=== PATIENT | female | born 1995 | race Caucasian/White ===

== ENCOUNTER 2018-02-11 19:30 | Emergency (ER) | payer OTHER, SELFPAY ==
[2018-02-11 19:31] VITALS: BP 139/106; PULSE 105; RESP 16; TEMP 36.6; O2SAT 98; BMI 34.6
--- NOTE | 2018-02-11 19:33 | RAD_ITS ---
STUDY: X-RAY - RIGHT FOOT CLINICAL: Female, 22 years old. Pain TECHNIQUE: 3 view(s) of the foot. COMPARISON: None. FINDINGS: There is no evidence of fracture or dislocation. There are no significant degenerative changes. There are no radiodense foreign bodies. RAD/Foot min 3 Views IMPRESSION: No fracture or dislocation. Electronically Signed: Casey Baker, at 19:51 EDT Tel , Service support ,
--- NOTE | 2018-02-11 19:38 | RAD_ITS ---
STUDY: X-RAY - RIGHT ANKLE REASON FOR EXAM: Female, 22 years old. Pain TECHNIQUE: 3 view(s) of the ankle. COMPARISON: None. FINDINGS: There is no evidence of fracture or dislocation. There are no significant degenerative changes. There are no radiodense foreign bodies. RAD/Ankle min 3 Views IMPRESSION: No fracture or dislocation. Electronically Signed: Casey Baker, at 19:49 EDT Tel , Service support ,
--- NOTE | 2018-02-11 20:16 | ED.DCSUM_ITS ---
- ER Visit Summary Date of Service: 02/11/18 Chief Complaint: Right ankle pain History of Present Illness: The patient is a 22 F presenting for evaluation secondary to a right ankle injury area patient reports that she suffered a mechanical fall where she had a plantar inversion injury of her right ankle. Patient states that she is able to bear weight but with some pain. She denies hitting her head or loss of consciousness. She denies any other injuries at this time. Patient believes that she sprained her ankle. Physical Examination: Physical exam unremarkable except for examination of lower extremity. Right lower extremity exam shows no proximal fibular head tenderness. There is no evidence of tenderness to palpation over the midfoot or the fifth metatarsal. There is lateral malleolar tenderness to palpation and swelling. No evidence of laxity with drawer test. DP and PT pulses are 2+ and bilaterally symmetric normal sensation distally normal capillary refill. Test Results: 3 view of the foot and ankle per radiology found to be negative Emergency Department Course and Treatment: Patient presented for evaluation secondary to an ankle injury. X-rays were found to be negative, patient will be provided with an Gonzalo wrap. She was instructed on rehab exercises and follow- up with primary care as needed. Disposition: Discharge Impression: 1. Right ankle sprain This note was generated with [employer] dictation software. It may contain incorrect words, spelling, and punctuation that were not noted in review of the chart prior to signing ED Disposition - Plan for ED Patient: Disposition: Home or Assisted Living Chief Complaint: Lower Extremity Injury Diagnosis: Ankle sprain Instructions: ED Sprain Ankle No X Ray Referrals: Joanne Leal NP-C [Primary Care Provider] - As Needed
== END 2018-02-11 20:49 | disposition home or self-care (01) ==
PROVIDERS: Emergency Provider Emergency Medicine; PCP Nurse Practitioner
DX: S93.401A Sprain of unspecified ligament of right ankle, initial encounter (principal); X50.1XXA Overexertion from prolonged static or awkward postures, initial encounter; Y93.89 Activity, other specified; Y92.89 Other specified places as the place of occurrence of the external cause; Y99.8 Other external cause status
CPT/HCPCS: 73610; 73630; 99282

== ENCOUNTER → 2020-03-11 16:41 | Outpatient (CLI) | payer OTHER, SELFPAY ==
[2020-03-11 13:40] VITALS: BMI 34.6
[2020-03-11 18:39] LABS: Chlamydia Trachomatis by PCR Negative (Negative); Neisserai gonorrhoeae by PCR Negative (Negative); Probe Check PASS; Sample Adequacy Control PASS; Specimen Processing Control PASS
[2020-03-16 13:52] LABS: HPV Reflexed? NOT INDICATED
== END ==
PROVIDERS: PCP Nurse Practitioner; Referring Provider Nurse Practitioner Women's Health; Visit Provider Nurse Practitioner Women's Health
DX: Z12.4 Encounter for screening for malignant neoplasm of cervix (principal); Z11.3 Encounter for screening for infections with a predominantly sexual mode of transmission
CPT/HCPCS: 87491; 87591; 88175; G0145

== ENCOUNTER → 2020-03-26 | Outpatient (CLI) | payer OTHER, SELFPAY ==
[2020-03-11 13:40] VITALS: BMI 34.6
[2020-03-26 10:22] LABS: Hemoglobin A1c 5.3 % (3.8-5.6)
[2020-03-26 10:44] LABS: Cholesterol 195 mg/dL (200); Estradiol 76.4 pg/mL; Glucose 102 mg/dL (74-106); High Density Lipoprotein 52 mg/dL; Prolactin 18.5 ng/mL; Thyroid Stim Hormone (TSH) 2.72 uIU/mL (0.358-3.74); Triglycerides 83 mg/dL; Very Low Density Lipoprotein 17 mg/dL (5-40)
== END | disposition home or self-care (01) ==
LOC: PAVLAB 09:31
PROVIDERS: PCP Nurse Practitioner; Referring Provider Nurse Practitioner Women's Health; Visit Provider Nurse Practitioner Women's Health
DX: E66.9 Obesity, unspecified (principal)
CPT/HCPCS: 36415; 80061; 82670; 82947; 83036; 84146; 84443

== ENCOUNTER → 2020-05-04 | Outpatient (CLI) | payer OTHER, SELFPAY ==
[2020-03-11 13:40] VITALS: BMI 34.6
[2020-05-04 10:48] LABS: Progesterone Level 0.78 ng/mL (See Comment)
== END | disposition home or self-care (01) ==
LOC: PAVLAB 10:15
PROVIDERS: PCP Nurse Practitioner; Referring Provider Nurse Practitioner Women's Health; Visit Provider Nurse Practitioner Women's Health
DX: N97.0 Female infertility associated with anovulation (principal)
CPT/HCPCS: 36415; 84144

== ENCOUNTER → 2020-05-25 | Outpatient (CLI) | payer OTHER, SELFPAY ==
[2020-03-11 13:40] VITALS: BMI 34.6
[2020-05-25 10:58] LABS: Progesterone Level 6.53 ng/mL (See Comment)
== END | disposition home or self-care (01) ==
LOC: PAVLAB 09:37
PROVIDERS: PCP Nurse Practitioner; Referring Provider Nurse Practitioner Women's Health; Visit Provider Nurse Practitioner Women's Health
DX: N97.9 Female infertility, unspecified (principal)
CPT/HCPCS: 36415; 84144

== ENCOUNTER → 2020-06-24 08:42 | Outpatient (CLI) | payer OTHER, SELFPAY ==
[2020-03-11 13:40] VITALS: BMI 34.6
[2020-06-24 09:21] LABS: Progesterone Level 12.85 ng/mL (See Comment)
== END ==
PROVIDERS: PCP Nurse Practitioner; Referring Provider Nurse Practitioner Women's Health; Visit Provider Nurse Practitioner Women's Health
DX: N97.9 Female infertility, unspecified (principal)
CPT/HCPCS: 36415; 84144

== ENCOUNTER → 2020-09-18 09:21 | Outpatient (CLI) | payer OTHER, SELFPAY ==
[2020-03-11 13:40] VITALS: BMI 34.6
[2020-09-18 10:15] LABS: Progesterone Level 15.51 ng/mL (See Comment)
== END ==
PROVIDERS: PCP Nurse Practitioner; Referring Provider Nurse Practitioner Women's Health; Visit Provider Nurse Practitioner Women's Health
DX: Z31.9 Encounter for procreative management, unspecified (principal)
CPT/HCPCS: 36415; 84144

== ENCOUNTER → 2020-09-28 09:33 | Outpatient (CLI) | payer OTHER, SELFPAY ==
[2020-03-11 13:40] VITALS: BMI 34.6
[2020-09-28 10:18] LABS: hCG Titer Quant., Serum 8 mIU/mL (1-3)
== END ==
PROVIDERS: PCP Nurse Practitioner; Referring Provider Obstetrics & Gynecology; Visit Provider Obstetrics & Gynecology
DX: N91.2 Amenorrhea, unspecified (principal)
CPT/HCPCS: 36415; 84702

== ENCOUNTER → 2020-09-30 08:22 | Outpatient (CLI) | payer OTHER, SELFPAY ==
[2020-03-11 13:40] VITALS: BMI 34.6
[2020-09-30 09:05] LABS: hCG Titer Quant., Serum 3 mIU/mL (1-3)
== END ==
PROVIDERS: PCP Nurse Practitioner; Referring Provider Obstetrics & Gynecology; Visit Provider Obstetrics & Gynecology
DX: N91.2 Amenorrhea, unspecified (principal)
CPT/HCPCS: 36415; 84702

== ENCOUNTER → 2021-04-20 09:28 | Outpatient (CLI) | payer OTHER, SELFPAY ==
[2021-04-20 10:06] LABS: Progesterone Level 4.42 ng/mL (See Comment)
== END ==
PROVIDERS: PCP Nurse Practitioner; Referring Provider Nurse Practitioner Women's Health; Visit Provider Nurse Practitioner Women's Health
DX: N97.0 Female infertility associated with anovulation (principal)
CPT/HCPCS: 36415; 84144

== ENCOUNTER → 2021-06-02 | Outpatient (CLI) | payer OTHER, SELFPAY ==
[2021-06-07 22:06] LABS: Chlamydia By Nucleic Acid AMP Negative (Negative)
[2021-06-08 12:05] LABS: Gonococcus By Nucleic Acid AMP Negative (Negative)
== END | disposition home or self-care (01) ==
LOC: LABSPEC 15:29
PROVIDERS: PCP Nurse Practitioner; Visit Provider Obstetrics & Gynecology
DX: Z34.90 Encounter for supervision of normal pregnancy, unspecified, unspecified trimester (principal)
CPT/HCPCS: 87491; 87591

== ENCOUNTER → 2021-07-05 09:22 | Outpatient (CLI) | payer OTHER, SELFPAY ==
[2021-07-05 09:59] LABS: Absolute Lymphocyte Count 2.01 X10^3/uL (0.83-4.51); Absolute Neutrophil Count 4.2 X10^3/uL (2.0-7.7); Basophil# 0.02 X10^3/uL; Basophil% 0.3 % (0-1); Eosinophil# 0.15 X10^3/uL; Eosinophils% 2.2 % (0-5); Hemoglobin 13.9 g/dL (12.0-15.0); Lymphocyte # 2.01 X10^3/ul (0.83-4.51); Lymphocyte % 29.6 % (19-41); Mean Corp Hgb Conc 34.8 g/dL (32-36); Mean Corpuscular Hgb 29.8 pg (27.0-32.0); Mean Corpuscular Volume 85.7 fL (81-99); Mean Platelet Vol. 12.1 fl (6.2-12.0); Monocyte# 0.43 X10^3/uL; Monocyte% 6.3 % (0-10); NRBC Flagged by Analyzer 0 % (0-5); Neutrophil # 4.17 X10^3/uL (2.7-7.7); Neutrophil % 61.5 % (47-70); Platelet Count 169 K/mm3 (150-450); RBC Distribution Width CV 14.4 % (11.6-14.6); Red Blood Count 4.67 M/mm3 (4.2-5.4); White Blood Count 6.8 K/mm3 (4.4-11.0)
[2021-07-05 11:14] LABS: HIV - WCH Non-Reactive (Nonreactive); Hepatitis B Surface Antigen Non-Reactive (Nonreactive); Hepatitis C Antibody Non-Reactive (Nonreactive); Rubella IgG Reactive (Nonreactive); Syphilis Antibodies Non-reactive
== END ==
PROVIDERS: PCP Nurse Practitioner; Referring Provider Obstetrics & Gynecology; Visit Provider Obstetrics & Gynecology
DX: Z34.90 Encounter for supervision of normal pregnancy, unspecified, unspecified trimester (principal)
CPT/HCPCS: 36415; 85025; 86703; 86762; 86780; 86803; 86850; 86900; 86901; 87340

== ENCOUNTER → 2021-07-13 09:42 | Outpatient (CLI) | payer OTHER, SELFPAY ==
[2021-07-13 10:32] LABS: Glucose Challenge Gest 1H 50g 157 mg/dL (70-140)
[2021-07-14 16:43] LABS: V-Zoster IgG (Immunity) < 135 index (Immune >165)
== END ==
PROVIDERS: PCP Nurse Practitioner; Referring Provider Obstetrics & Gynecology; Visit Provider Obstetrics & Gynecology
DX: Z34.90 Encounter for supervision of normal pregnancy, unspecified, unspecified trimester (principal)
CPT/HCPCS: 36415; 82950; 86787

== ENCOUNTER → 2021-07-19 09:46 | Outpatient (CLI) | payer OTHER, SELFPAY ==
[2021-07-19 11:15] LABS: Glucose GTT-Gestation. Fasting 95 mg/dL (<105)
[2021-07-19 11:32] LABS: Glucose GTT-Gestational 1 Hr 171 mg/dL (<190)
[2021-07-19 12:31] LABS: Glucose GTT-Gestational 2 Hr 144 mg/dL (<165)
[2021-07-19 14:08] LABS: Glucose GTT-Gestational 3 Hr 107 L (<145)
== END ==
PROVIDERS: PCP Nurse Practitioner; Visit Provider Nurse Practitioner Women's Health
DX: Z13.1 Encounter for screening for diabetes mellitus (principal)
CPT/HCPCS: 36415; 82951; 82952

== ENCOUNTER 2021-10-18 07:44 | Outpatient (CLI) | payer BC, SELFPAY ==
[2021-10-18 08:09] LABS: Absolute Lymphocyte Count 2.28 X10^3/uL (0.83-4.51); Absolute Neutrophil Count 5.1 X10^3/uL (2.0-7.7); Basophil# 0.02 X10^3/uL; Basophil% 0.3 % (0-1); Eosinophil# 0.13 X10^3/uL; Eosinophils% 1.6 % (0-5); Hematocrit 35.3 % (37-47); Hemoglobin 12.2 g/dL (12.0-15.0); Lymphocyte # 2.28 X10^3/ul (0.83-4.51); Lymphocyte % 28.8 % (19-41); Mean Corp Hgb Conc 34.6 g/dL (32-36); Mean Corpuscular Hgb 30.6 pg (27.0-32.0); Mean Corpuscular Volume 88.5 fL (81-99); Mean Platelet Vol. 12.6 fl (6.2-12.0); Monocyte# 0.34 X10^3/uL; Monocyte% 4.3 % (0-10); NRBC Flagged by Analyzer 0 % (0-5); Neutrophil # 5.11 X10^3/uL (2.7-7.7); Neutrophil % 64.6 % (47-70); Platelet Count 164 K/mm3 (150-450); RBC Distribution Width CV 13.1 % (11.6-14.6); RBC Distribution Width SD 42.5 fl (35.1-43.9); Red Blood Count 3.99 M/mm3 (4.2-5.4); White Blood Count 7.9 K/mm3 (4.4-11.0)
[2021-10-18 08:42] LABS: Glucose Challenge Gest 1H 50g 184 mg/dL (70-140)
[2021-10-18 09:20] LABS: Amphetamine Urine VISTA NEGATIVE (<1000 ng/mL); Barbiturate Urine VISTA NEGATIVE (< 200 ng/mL); Benzodiazepine Urine VISTA NEGATIVE (< 200 ng/mL); Cocaine Urine VISTA NEGATIVE (< 300 ng/mL); Ecstacy Urine VISTA NEGATIVE (< 500 ng/mL); Methadone Urine VISTA NEGATIVE (< 300 ng/mL); PCP Urine VISTA NEGATIVE (< 25 ng/mL); THC Urine VISTA NEGATIVE (< 50 ng/mL); Vista UDS pH Range 6
== END 2021-10-18 23:59 | disposition home or self-care (01) ==
LOC: PAVLAB 07:45
PROVIDERS: Obstetrics & Gynecology; PCP Nurse Practitioner; Referring Provider Obstetrics & Gynecology; Visit Provider Obstetrics & Gynecology
DX: Z34.81 Encounter for supervision of other normal pregnancy, first trimester (principal); Z3A.11 11 weeks gestation of pregnancy
CPT/HCPCS: 36415; 80307; 82950; 85025; 87086; 87088

== ENCOUNTER 2021-10-26 06:48 | Outpatient (CLI) | payer BC, SELFPAY ==
[2021-10-26 07:34] LABS: Glucose GTT-Gestation. Fasting 91 mg/dL (<105)
[2021-10-26 08:33] LABS: Glucose GTT-Gestational 1 Hr 166 mg/dL (<190)
[2021-10-26 10:08] LABS: Glucose GTT-Gestational 2 Hr 179 mg/dL (<165)
[2021-10-26 11:10] LABS: Glucose GTT-Gestational 3 Hr 139 L (<145)
== END 2021-10-26 23:59 | disposition home or self-care (01) ==
LOC: LAB 06:49
PROVIDERS: PCP Nurse Practitioner; Referring Provider Nurse Practitioner Women's Health; Visit Provider Nurse Practitioner Women's Health
DX: O99.810 Abnormal glucose complicating pregnancy (principal)
CPT/HCPCS: 36415; 82951; 82952

== ENCOUNTER 2021-12-15 11:26 | Inpatient (IN) | payer BC, SELFPAY ==
[2021-12-15] VITALS (77 sets, daily range): BP systolic 123–169; BP diastolic 58–99; PULSE 67–104; RESP 16–20; TEMP 36.2–37.5; O2SAT 94–100; BMI 43.6
--- NOTE | 2021-12-15 07:47 | US_ITS ---
STUDY: SECOND AND THIRD TRIMESTER OBSTETRICAL ULTRASOUND REASON FOR EXAM: Female, 26 years old growth -- 36 weeks LMP: 04/07/2021. TECHNIQUE: Transabdominal TECHNICAL QUALITY: Adequate. PRIOR ULTRASOUND: None. FINDINGS: There is a single intrauterine fetus. The fetus is in a cephalic presentation. There is demonstrated cardiac activity with a heart rate of 148 bpm. There is a normal amniotic fluid volume. The largest amniotic fluid pocket measures 3.8 cm. The amniotic fluid index (SARIKA) is 9.1 cm. The placenta is anterior in location and is not low lying. There are Grade 2 placental changes. The cervix measures 3.7 cm in length. The adnexal regions are not visualized. BIOMETRY: BPD: 8.82 cm: 35 weeks, 4 days HC: 31.78 cm: 35 weeks, 5 days AC: 31.67 cm: 35 weeks, 4 days FL: 6.85 cm: 35 weeks, 1 days CI: 82% FL/BPD: 78% FL/HC: FL/AC: 22% HC/AC: 1.00 age by current US: 35 weeks, 1 days. BRUNO by current US: 01/18/2022. Estimated weight: 2724 grams, +/- 409 grams, 41 %. Age by LMP: 36 weeks, 0 days. BRUNO by LMP: 01/12/2022. US/OB Limited With Biometrics IMPRESSION: Single live intrauterine gestation with mean gestational age of 35 weeks and 1 day. Electronically Signed: Star Marcial MD at 12:54 EDT ,
[2021-12-15 10:39] LABS: Hematocrit 34.2 % (37-47); Hemoglobin 11.6 g/dL (12.0-15.0); Mean Corp Hgb Conc 33.9 g/dL (32-36); Mean Corpuscular Hgb 28.9 pg (27.0-32.0); Mean Corpuscular Volume 85.1 fL (81-99); Mean Platelet Vol. 13.3 fl (6.2-12.0); Platelet Count 133 K/mm3 (150-450); RBC Distribution Width CV 12.9 % (11.6-14.6); RBC Distribution Width SD 39.2 fl (35.1-43.9); Red Blood Count 4.02 M/mm3 (4.2-5.4); White Blood Count 7.1 K/mm3 (4.4-11.0)
[2021-12-15 10:52] LABS: AST(SGOT) 15 U/L (15-37); Alanine Aminotransfer ALT/SGPT 11 U/L (13-56); Creatinine, Serum 0.59 mg/dL (0.55-1.02); EST Glomerular Filtration Rate 128 mL/min (>60); Est Glom Filt Rate - Afr Amer 155 mL/min (>60); Estimated Creatinine Clearance 138.05 ml/min; Uric Acid 5.8 mg/dL (2.6-6.0)
[2021-12-15 10:53] LABS: Protein, Urine (Random) 49.2 mg/dL (<11.9); Protein:Creat Ratio 712 mg/g CRE (0-200)
[2021-12-15] MEDS: Lactated Ringers 1,000 ML 50 ML IV (11:50)
[2021-12-15] MEDS: Magnesium Sulfate 4gm/100mL 4 GM/100 ML IV.SOLN. IV (11:51)
[2021-12-15] MEDS: Magnesium Sulfate 4gm/100mL 2 GM/50 ML IV.SOLN. IV (12:18)
[2021-12-15] MEDS: Magnesium Sulfate 20 GM/500 ML BAG IV ×2 (12:29→22:32)
[2021-12-15] MEDS: miSOPROStol 25 MCG TABLET VAGINAL ×3 (12:38→21:44)
[2021-12-15] MEDS: Betamethasone/Betamethasone 30 MG/5 ML Vial 12 MG IM (12:41)
--- NOTE | 2021-12-15 13:46 | HP.PCM.OB_ITS ---
HPI - General General Date of Admission: 12/15/21 HPI Narrative KD MCELROY, is a 26y/o @ 36w0d who presents to L&D from the office for severe range blood pressures. She has gained 8 pounds since her last visit. she denies headaches or visual changes, no RUQ or epigastric pain. She states that she feels absolutely normal. Maternal Data Information BRUNO Calculator Estimated Delivery Date Method Current WG Current Estimate 01/12/22 Ultrasound #1 36w 1d Other Estimates 01/05/22 LMP (Certain) 37w 1d [facility] Medical History (Updated 12/16/21 @ 07:[address] 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 - [employer] history of recent travel: No sexually active: Yes Smoking Status: Never smoker second hand exposure: No alcohol intake: current alcohol intake frequency: holidays/special occasions only substance use type: does not use what type of physical activity do you participate in: bicycling and weight training seatbelt use: always do you feel safe at home: Yes 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 Date Name GA/Weeks Outcome Route Bth Weight Infant Gen Labor Lgth Anesthesia Del Locatn Provider FOB Unknown 09/2020 Miscarriage Visit Details Expected Delivery Route/Plan Labor Preferences- CB/BF classes: encouraged labor support person: Edmundo labor intervention preferences: [] pain management options preferred: epidural cut cord/dad catch: cord : yes PP control planned: discussed discussed possible routes of delivery and associated risks: [] special requests: [] Plans Covid status: non immune, counseled regarding risk of covid in vs vaccination and declined vaccination Flu vaccine: declined Tdap vaccine: considering Rhogam: na LARC form signed: yes Problem list reviewed and updated with the most current plan of care details and appropriate orders placed. Relevant counseling for the gestational age provided. Continue routine care and follow up unless otherwise noted in visit notes/problem list details OB Flowsheet Initial Weight: Not Recorded Date -?-?-?-?-?-?-?-?-?-?-?-?- EGA Weight BP Urine Prot -?-?-?-?-?-?-?-?-?-?-?-?- Glucose FHR FuHt Pres Dilation -?-?-?-?-?-?-?-?-?-?-?-?- Effaced St Visit Note 06/02/21 -?-?-?-?-?-?-?-?-?-?-?-?- 8w 0d 256 lb 130/88 -?-?-?-?-?-?-?-?-?-?-?-?- 163 -?-?-?-?-?-?-?-?-?-?-?-?- SM- CRL 1.45cm N OT cons with LMP 06/28/21 -?-?-?-?-?-?-?-?-?-?-?-?- 11w 5d 118/80 Negative -?-?-?-?-?-?-?-?-?-?-?-?- Negative 160 -?-?-?-?-?-?-?-?-?-?-?-?- SM- no vb lof cr amping some nausea 07/27/21 -?-?-?-?-?-?-?-?-?-?-?-?- 15w 6d 257 lb 4 oz 108/78 Nega tive -?-?-?-?-?-?-?-?-?-?-?-?- Negative 145 -?-?-?-?-?-?-?-?-?-?-?-?- JV- no lof ,vagi nal bleeding, or cramping. No complaints. Failed 1 hr, passed 3 hr. 08/25/21 -?-?-?-?-?-?-?-?-?-?-?-?- 20w 0d 260 lb 4 oz 124/82 Nega tive -?-?-?-?-?-?-?-?-?-?-?-?- Negative 147 -?-?-?-?-?-?-?-?-?-?-?-?- JV- needs follow up anatomy to look at kidneys and heart on 09/16/2021 09/22/21 -?-?-?-?-?-?-?-?-?-?-?-?- 24w 0d 261 lb 130/88 Negative -?-?-?-?-?-?-?-?-?-?-?-?- Negative 145 -?-?-?-?-?-?-?-?-?-?-?-?- JV- no lof, vagi nal bleeding, or dec fm. no complaints today. glucola drink given. [facility] appt at 32 weeks. 10/18/21 -?-?-?-?-?-?-?-?-?-?-?-?- 27w 5d 264 lb 4 oz 128/82 Nega tive -?-?-?-?-?-?-?-?-?-?-?-?- Negative 142 -?-?-?-?-?-?-?-?-?-?-?-?- -No VB, LOF. G ood FM. 28 wk labs pending. [facility] 11/18. Considering tdap. Larc done 11/02/21 -?-?-?-?-?-?-?-?-?-?-?-?- 29w 6d 264 lb 2 oz 136/80 Trac e -?-?-?-?-?-?-?-?-?-?-?-?- Negative 143 -?-?-?-?-?-?-?-?-?-?-?-?- MH-No VB, LOF. G ood FM. MFM US 11/18. 11/19/21 -?-?-?-?-?-?-?-?-?-?-?-?- 32w 2d 271 lb 4 oz 130/88 Nega tive -?-?-?-?-?-?-?-?-?-?-?-?- Negative 140 32 -?-?-?-?-?-?-?-?-?-?-?-?- SM- no vb lof go od fm no regular ctx discussed testing. 11/30/21 -?-?-?-?-?-?-?-?-?-?-?-?- 33w 6d 269 lb 120/88 -?-?-?-?-?-?-?-?-?-?-?-?- 140 34 -?-?-?-?-?-?-?-?-?-?-?-?- SM- no vb lof go od fm no regular ctx 12/15/21 -?-?-?-?-?-?-?-?-?-?-?-?- 36w 0d 277 lb 2 oz 158/110 1+ -?-?-?-?-?-?-?-?-?-?-?-?- Negative -?-?-?-?-?-?-?-?-?-?-?-?- JV- severe blood pressure ranges, sending to L&D [facility] 12/15/21 -?-?-?-?-?-?-?-?-?-?-?-?- 36w 0d 278 lb 7.101 oz 157/ 94 157/99 131/74 145/83 152/91 152/92 159/96 159/96 145/92 145/92 146/79 146/79 147/76 154/84 160/97 160/97 151/85 151/85 156/86 162/84 149/73 154/76 154/76 148/82 140/74 139/79 158/71 169/96 158/71 154/97 154/97 143/75 152/83 152/83 149/73 149/73 138/78 138/78 147/71 147/71 123/58 123/58 134/72 134/72 129/81 129/81 141/72 141/72 149/80 144/87 144/87 140/83 140/83 139/74 139/74 144/75 144/75 147/74 -?-?-?-?-?-?-?-?-?-?-?-?- -?-?-?-?-?-?-?-?-?-?-?-?- ROS Constitutional Constitutional: Denies change in weight, fatigue, fever(s), headache(s), poor appetite or weakness Eyes Eyes: Denies blurry vision, change in vision, seeing flashes or spots in vision ENT HEENT: Denies dizziness, headache(s), loss taste/smell or sore throat Cardiovascular Cardiovascular: Denies chest pain, dizziness, dyspnea, irregular heart rhythm, leg edema, palpitations, rapid heart rate or vomiting Respiratory/Chest Respiratory/Chest: Denies chest tightness, cough, dyspnea or breast pain Gastrointestinal Gastrointestinal: Denies abdominal pain, anorexia, constipation, cramping, diarrhea, hemorrhoids, vomiting or weight changes Genitourinary Genitourinary: Denies dysuria, flank pain, genital lesions, genital pain, urinary frequency or urinary urgency Musculoskeletal Musculoskeletal: Denies back pain, difficulty walking, joint pain, limited range of motion, muscle cramps or numbness Integumentary Integumentary: Denies lesions or unusual bruising Neurologic Neurologic: Denies abnormal movements, abnormal speech, dizziness, numbness, seizure-like activity or syncope Psychiatric Psychiatric: Denies anxiety, behavioral changes, change in appetite, change in libido, cognitive impairment, confusion, depression, difficulty concentrating, hallucinations or suicidal thoughts Endocrine Endocrinology: Denies excessive sweating, polydipsia or polyuria Hematologic/Lymphatic Hematologic/Lymphatic: Denies easy bleeding, easy bruising or lymphadenopathy Allergic/Immunologic Allergic/Immunologic: Denies itchy eyes, lip swelling, seasonal rhinorrhea, rhinitis, throat swelling, tongue swelling, eczemia, wheezing or asthma Vital Signs Vital Signs Vital Signs: 12/15/21 09:50 12/15/21 09:51 12/15/21 10:08 Temperature 99.5 F H Temperature Source Temporal Pulse Rate 78 85 Respiratory Rate Respiratory Effort Respiratory Depth Respiratory Pattern Blood Pressure 157/94 H 157/99 H Blood Pressure Mean BP Systolic 157 157 BP Diastolic 94 99 Blood Pressure Source Blood Pressure Position Blood Pressure Location Pulse Ox 99 Oxygen Delivery Method 12/15/21 10:22 12/15/21 10:38 12/15/21 11:23 Temperature Temperature Source Pulse Rate 67 74 67 Respiratory Rate Respiratory Effort Respiratory Depth Respiratory Pattern Blood Pressure 131/74 H 145/83 H 152/91 H Blood Pressure Mean BP Systolic 131 145 152 BP Diastolic 74 83 91 Blood Pressure Source Blood Pressure Position Blood Pressure Location Pulse Ox Oxygen Delivery Method 12/15/21 11:37 12/15/21 11:52 12/15/21 11:53 Temperature 97.1 F L Temperature Source Temporal Pulse Rate 92 77 80 Respiratory Rate 16 Respiratory Effort Normal Respiratory Depth Normal Respiratory Pattern Normal Blood Pressure 152/92 H 159/96 H 159/96 H Blood Pressure Mean 117 BP Systolic 152 159 BP Diastolic 92 96 Blood Pressure Source Monitor Blood Pressure Position Semi-Fowlers Blood Pressure Location Right Arm Pulse Ox 99 Oxygen Delivery Method Room Air 12/15/21 11:54 12/15/21 11:57 12/15/21 11:59 Temperature Temperature Source Pulse Rate 77 84 82 Respiratory Rate 20 H Respiratory Effort Respiratory Depth Respiratory Pattern Blood Pressure 145/92 H Blood Pressure Mean 109 BP Systolic BP Diastolic Blood Pressure Source Monitor Blood Pressure Position Semi-Fowlers Blood Pressure Location Right Arm Pulse Ox 99 99 99 Oxygen Delivery Method Room Air 12/15/21 12:04 12/15/21 12:09 12/15/21 12:14 Temperature Temperature Source Pulse Rate 89 100 91 Respiratory Rate Respiratory Effort Respiratory Depth Respiratory Pattern Blood Pressure 145/92 H Blood Pressure Mean BP Systolic 145 BP Diastolic 92 Blood Pressure Source Blood Pressure Position Blood Pressure Location Pulse Ox 98 98 99 Oxygen Delivery Method 12/15/21 12:19 12/15/21 12:23 12/15/21 12:31 Temperature Temperature Source Pulse Rate 93 85 86 Respiratory Rate Respiratory Effort Respiratory Depth Respiratory Pattern Blood Pressure 146/79 H Blood Pressure Mean BP Systolic 146 BP Diastolic 79 Blood Pressure Source Blood Pressure Position Blood Pressure Location Pulse Ox 99 99 Oxygen Delivery Method 12/15/21 12:33 12/15/21 12:36 12/15/21 12:37 Temperature 98.6 F Temperature Source Temporal Pulse Rate 91 90 Respiratory Rate 20 H Respiratory Effort Respiratory Depth Respiratory Pattern Blood Pressure 146/79 H 147/76 H Blood Pressure Mean 101 BP Systolic 147 BP Diastolic 76 Blood Pressure Source Monitor Blood Pressure Position Semi-Fowlers Blood Pressure Location Left Arm Pulse Ox 99 99 Oxygen Delivery Method Room Air 12/15/21 12:41 12/15/21 12:46 12/15/21 12:48 Temperature Temperature Source Pulse Rate 86 80 92 Respiratory Rate Respiratory Effort Respiratory Depth Respiratory Pattern Blood Pressure Blood Pressure Mean BP Systolic BP Diastolic Blood Pressure Source Blood Pressure Position Blood Pressure Location Pulse Ox 99 100 94 Oxygen Delivery Method 12/15/21 12:51 12/15/21 12:52 12/15/21 12:56 Temperature Temperature Source Pulse Rate 88 84 92 Respiratory Rate Respiratory Effort Respiratory Depth Respiratory Pattern Blood Pressure 154/84 H Blood Pressure Mean BP Systolic 154 BP Diastolic 84 Blood Pressure Source Blood Pressure Position Blood Pressure Location Pulse Ox 99 99 Oxygen Delivery Method 12/15/21 13:01 12/15/21 13:06 12/15/21 13:07 Temperature Temperature Source Pulse Rate 90 93 Respiratory Rate Respiratory Effort Respiratory Depth Respiratory Pattern Blood Pressure 160/97 H Blood Pressure Mean BP Systolic 160 BP Diastolic 97 Blood Pressure Source Blood Pressure Position Blood Pressure Location Pulse Ox 99 99 Oxygen Delivery Method 12/15/21 13:10 12/15/21 13:11 12/15/21 13:16 Temperature 98.7 F Temperature Source Temporal Pulse Rate 93 82 83 Respiratory Rate 18 Respiratory Effort Normal Respiratory Depth Normal Respiratory Pattern Normal Blood Pressure 160/97 H Blood Pressure Mean 118 BP Systolic BP Diastolic Blood Pressure Source Monitor Blood Pressure Position Sitting Blood Pressure Location Left Arm Pulse Ox 100 99 99 Oxygen Delivery Method Room Air 12/15/21 13:21 12/15/21 13:23 12/15/21 13:27 Temperature 98.2 F Temperature Source Temporal Pulse Rate 82 90 79 Respiratory Rate 17 Respiratory Effort Respiratory Depth Respiratory Pattern Blood Pressure 151/85 H 151/85 H Blood Pressure Mean 107 BP Systolic 151 BP Diastolic 85 Blood Pressure Source Monitor Blood Pressure Position Sitting Blood Pressure Location Left Arm Pulse Ox 99 100 Oxygen Delivery Method Room Air 12/15/21 13:32 12/15/21 13:37 12/15/21 13:42 Temperature Temperature Source Pulse Rate 81 87 91 Respiratory Rate Respiratory Effort Respiratory Depth Respiratory Pattern Blood Pressure 156/86 H Blood Pressure Mean BP Systolic 156 BP Diastolic 86 Blood Pressure Source Blood Pressure Position Blood Pressure Location Pulse Ox 100 99 99 Oxygen Delivery Method 12/15/21 13:47 12/15/21 13:52 12/15/21 13:57 Temperature Temperature Source Pulse Rate 91 83 93 Respiratory Rate Respiratory Effort Respiratory Depth Respiratory Pattern Blood Pressure 162/84 H Blood Pressure Mean BP Systolic 162 BP Diastolic 84 Blood Pressure Source Blood Pressure Position Blood Pressure Location Pulse Ox 99 100 100 Oxygen Delivery Method 12/15/21 14:02 12/15/21 14:07 12/15/21 14:12 Temperature Temperature Source Pulse Rate 99 95 92 Respiratory Rate Respiratory Effort Respiratory Depth Respiratory Pattern Blood Pressure 149/73 H Blood Pressure Mean BP Systolic 149 BP Diastolic 73 Blood Pressure Source Blood Pressure Position Blood Pressure Location Pulse Ox 100 100 100 Oxygen Delivery Method 12/15/21 14:17 12/15/21 14:22 12/15/21 14:27 Temperature Temperature Source Pulse Rate 96 94 94 Respiratory Rate Respiratory Effort Respiratory Depth Respiratory Pattern Blood Pressure 154/76 H Blood Pressure Mean BP Systolic 154 BP Diastolic 76 Blood Pressure Source Blood Pressure Position Blood Pressure Location Pulse Ox 100 99 99 Oxygen Delivery Method 12/15/21 14:29 12/15/21 14:30 12/15/21 14:32 Temperature Temperature Source Pulse Rate 94 89 Respiratory Rate 18 Respiratory Effort Normal Normal Respiratory Depth Respiratory Pattern Blood Pressure 154/76 H Blood Pressure Mean 102 BP Systolic BP Diastolic Blood Pressure Source Monitor Blood Pressure Position Semi-Fowlers Blood Pressure Location Left Arm Pulse Ox 100 100 Oxygen Delivery Method Room Air 12/15/21 14:37 12/15/21 14:42 12/15/21 14:47 Temperature Temperature Source Pulse Rate 87 104 H 94 Respiratory Rate Respiratory Effort Respiratory Depth Respiratory Pattern Blood Pressure 148/82 H Blood Pressure Mean BP Systolic 148 BP Diastolic 82 Blood Pressure Source Blood Pressure Position Blood Pressure Location Pulse Ox 100 98 96 Oxygen Delivery Method 12/15/21 14:50 12/15/21 14:52 12/15/21 14:53 Temperature Temperature Source Pulse Rate 83 83 Respiratory Rate Respiratory Effort Respiratory Depth Respiratory Pattern Blood Pressure 140/74 H Blood Pressure Mean BP Systolic 140 BP Diastolic 74 Blood Pressure Source Blood Pressure Position Blood Pressure Location Pulse Ox 94 97 Oxygen Delivery Method 12/15/21 15:10 12/15/21 15:46 12/15/21 15:47 Temperature 98.4 F Temperature Source Temporal Pulse Rate 87 73 92 Respiratory Rate 16 Respiratory Effort Normal Respiratory Depth Normal Respiratory Pattern Normal Blood Pressure 139/79 H 158/71 H 169/96 H Blood Pressure Mean 100 BP Systolic 139 169 BP Diastolic 79 96 Blood Pressure Source Monitor Blood Pressure Position Sitting Blood Pressure Location Left Arm Pulse Ox 97 Oxygen Delivery Method Room Air 12/15/21 15:52 12/15/21 16:49 12/15/21 16:51 Temperature 99.3 F H Temperature Source Temporal Pulse Rate 88 91 89 Respiratory Rate 16 Respiratory Effort Respiratory Depth Respiratory Pattern Blood Pressure 158/71 H 154/97 H 154/97 H Blood Pressure Mean 116 BP Systolic 158 154 BP Diastolic 71 97 Blood Pressure Source Monitor Blood Pressure Position Sitting Blood Pressure Location Left Arm Pulse Ox 99 Oxygen Delivery Method Room Air 12/15/21 17:55 12/15/21 18:14 12/15/21 18:15 Temperature 98.6 F Temperature Source Temporal Pulse Rate 88 82 82 Respiratory Rate 18 Respiratory Effort Normal Respiratory Depth Respiratory Pattern Blood Pressure 143/75 H 152/83 H 152/83 H Blood Pressure Mean 106 BP Systolic 143 152 BP Diastolic 75 83 Blood Pressure Source Monitor Blood Pressure Position Semi-Fowlers Blood Pressure Location Left Arm Pulse Ox Oxygen Delivery Method Room Air 12/15/21 19:15 12/15/21 19:20 12/15/21 19:21 Temperature 98.6 F Temperature Source Temporal Pulse Rate 86 86 86 Respiratory Rate 16 Respiratory Effort Normal Respiratory Depth Normal Respiratory Pattern Normal Blood Pressure 149/73 H 149/73 H Blood Pressure Mean 98 BP Systolic 149 BP Diastolic 73 Blood Pressure Source Monitor Blood Pressure Position Semi-Fowlers Blood Pressure Location Left Arm Pulse Ox 98 98 Oxygen Delivery Method Room Air 12/15/21 20:24 12/15/21 20:35 12/15/21 21:14 Temperature 98.6 F Temperature Source Temporal Pulse Rate 83 102 H 84 Respiratory Rate 16 Respiratory Effort Respiratory Depth Respiratory Pattern Blood Pressure 138/78 H 138/78 H 147/71 H Blood Pressure Mean 98 BP Systolic 138 147 BP Diastolic 78 71 Blood Pressure Source Monitor Blood Pressure Position Semi-Fowlers Blood Pressure Location Left Arm Pulse Ox 98 Oxygen Delivery Method Room Air 12/15/21 21:15 12/15/21 21:18 12/15/21 22:08 Temperature 98.6 F Temperature Source Temporal Pulse Rate 86 98 84 Respiratory Rate 16 Respiratory Effort Normal Respiratory Depth Respiratory Pattern Blood Pressure 147/71 H 123/58 H Blood Pressure Mean 96 BP Systolic 123 BP Diastolic 58 Blood Pressure Source Monitor Blood Pressure Position Sitting Blood Pressure Location Right Arm Pulse Ox 98 98 Oxygen Delivery Method Room Air 12/15/21 22:14 12/15/21 23:22 12/15/21 23:25 Temperature 98.6 F 98.7 F Temperature Source Temporal Temporal Pulse Rate 84 Respiratory Rate 16 16 Respiratory Effort Normal Respiratory Depth Normal Respiratory Pattern Normal Blood Pressure 123/58 H 134/72 H 134/72 H Blood Pressure Mean 79 92 BP Systolic 134 BP Diastolic 72 Blood Pressure Source Monitor Monitor Blood Pressure Position Semi-Fowlers Semi-Fowlers Blood Pressure Location Left Arm Left Arm Pulse Ox 98 99 98 Oxygen Delivery Method Room Air Room Air 12/16/21 00:12 12/16/21 00:16 12/16/21 01:18 Temperature 99.1 F Temperature Source Temporal Pulse Rate 80 81 Respiratory Rate 16 Respiratory Effort Respiratory Depth Respiratory Pattern Blood Pressure 129/81 H 129/81 H 141/72 H Blood Pressure Mean 97 BP Systolic 129 141 BP Diastolic 81 72 Blood Pressure Source Monitor Blood Pressure Position Semi-Fowlers Blood Pressure Location Right Arm Pulse Ox 98 Oxygen Delivery Method Room Air 12/16/21 01:22 12/16/21 02:28 12/16/21 02:30 Temperature 98.3 F 99.0 F Temperature Source Temporal Temporal Pulse Rate 79 Respiratory Rate 16 16 Respiratory Effort Normal Respiratory Depth Normal Respiratory Pattern Normal Blood Pressure 141/72 H 149/80 H Blood Pressure Mean 95 BP Systolic 149 BP Diastolic 80 Blood Pressure Source Monitor Blood Pressure Position Semi-Fowlers Blood Pressure Location Left Arm Pulse Ox 98 99 98 Oxygen Delivery Method Room Air Room Air 12/16/21 03:18 12/16/21 03:20 12/16/21 03:22 Temperature 98.6 F Temperature Source Temporal Pulse Rate 85 84 Respiratory Rate 16 Respiratory Effort Normal Respiratory Depth Normal Respiratory Pattern Normal Blood Pressure 144/87 H 144/87 H Blood Pressure Mean 106 BP Systolic 144 BP Diastolic 87 Blood Pressure Source Monitor Blood Pressure Position Semi-Fowlers Blood Pressure Location Right Arm Pulse Ox 99 98 Oxygen Delivery Method Room Air 12/16/21 04:14 12/16/21 05:12 12/16/21 05:14 Temperature 98.6 F 98.2 F Temperature Source Temporal Temporal Pulse Rate 82 79 Respiratory Rate 15 16 Respiratory Effort Normal Respiratory Depth Normal Respiratory Pattern Normal Blood Pressure 140/83 H 139/74 H 139/74 H Blood Pressure Mean 102 95 BP Systolic 140 139 BP Diastolic 83 74 Blood Pressure Source Monitor Monitor Blood Pressure Position Semi-Fowlers Semi-Fowlers Blood Pressure Location Left Arm Left Arm Pulse Ox 99 99 99 Oxygen Delivery Method Room Air Room Air 12/16/21 06:13 12/16/21 06:17 12/16/21 07:19 Temperature 98.8 F Temperature Source Temporal Pulse Rate 88 84 Respiratory Rate 15 Respiratory Effort Respiratory Depth Respiratory Pattern Blood Pressure 144/75 H 144/75 H 147/74 H Blood Pressure Mean 98 BP Systolic 144 147 BP Diastolic 75 74 Blood Pressure Source Monitor Blood Pressure Position Semi-Fowlers Blood Pressure Location Left Arm Pulse Ox 98 98 Oxygen Delivery Method Room Air 12/16/21 07:30 Temperature 97.7 F L Temperature Source Pulse Rate Respiratory Rate Respiratory Effort Respiratory Depth Respiratory Pattern Blood Pressure Blood Pressure Mean BP Systolic BP Diastolic Blood Pressure Source Blood Pressure Position Blood Pressure Location Pulse Ox 98 Oxygen Delivery Method Weight Weight: 278 lb 7.101 oz Body Mass Index (BMI) 43.6 Physical Exam Const alert, oriented x3, no apparent distress and healthy appearing General Appearance: cooperative; Negative for anxious HEENT normocephalic Face and Sinus: normal facial exam Eyes EOMs intact bilaterally and no scleral icterus General Eye: normal appearance of both eyes Neck full ROM and supple Lymph Lymphatic: no lymphadenopathy noted Chest Chest: abnormal inspection of the chest Resp normal respiratory effort Effort and Inspection: able to speak in complete sentences Cardio regular rate GI soft to palpation and non-tender Inspection: gravid Palpation: soft; Negative for tender external exam normal Amniotic Fluid: ROM+plus Back/Spine no CVA tenderness Extremity normal to inspection, full ROM and no clubbing, cyanosis or edema General Extremity: Negative for calf tenderness or edema Skin Lesions: no lesions Rashes: no rashes Psych mental status grossly normal Labs Labs Labs: Blood Type B POSITIVE Antibody Screen NEGATIVE Hct 37.3 % (37-47) Hgb 12.4 g/dL (12.0-15.0) Obstetrics US Syphilis Total Ab Non-reactive VZV IgG Antibody < 135 index (Immune >165) L Rubella IgG Antibody Reactive (Nonreactive) Hep Bs Antigen Non-Reactive (Nonreactive) Chlamydia DNA ([place]) Negative (Negative) Neisseria gonorrhoeae DNA ([place]) Negative (Negative) HIV 1&2 Antibody Non-Reactive (Nonreactive) Glucose 1 Hr 50 gm 184 mg/dL (70-140) H Group B Strep DNA POSITIVE (Negative) H Assessment & Plan (1) Pre-eclampsia: (2) Infertility: COMMENT: Femara (3) : QUALIFIERS: Weeks of gestation: 36 weeks Qualified Code(s): Z3A.36 - 36 weeks gestation of COMMENT: anatomy nl, addtnl kidney views @ 30-32 wks- nl. declines carrier, genetic and NTD; (4) Supervision of normal : QUALIFIERS: Normal : normal first Trimester: third trimester Qualified Code(s): Z34.03 - Encounter for supervision of normal first , third trimester COMMENT: PRR BRUNO: [birth year] girl Spouse: Edmundo (5) Family history of cleft palate: COMMENT: 2nd cousin (6) Obesity affecting : QUALIFIERS: Trimester: third trimester Qualified Code(s): O99.213 - Obesity complicating , third trimester COMMENT: nl growth scans, q 4 weeks. weekly nsts after 36. BMI 42. 1 tm gct nl, encouraged healthy weight gain. (7) Maternal varicella, non-immune: COMMENT: needs vaccine PP (8) induced hypertension: COMMENT: sending to L&D for pih work up and prot: cr. likely induce labor today (9) Abnormal glucose affecting : COMMENT: Normal 3 hr GTT. Borderline levels PLAN: pre-eclampsia and possibly early HELLP syndrome based on low platelets. -plan to start magnesium sulfate 6 gram bolus followed by 2 grams/hr -cx is closed, plan to use cytotec to start induction
[2021-12-15 15:38] LABS: Protein, Urine (Random) 25.8 mg/dL (<11.9); Protein:Creat Ratio 942 mg/g CRE (0-200)
[2021-12-15 15:40] LABS: Hematocrit 37.3 % (37-47); Hemoglobin 12.5 g/dL (12.0-15.0); Mean Corp Hgb Conc 33.5 g/dL (32-36); Mean Corpuscular Hgb 28.5 pg (27.0-32.0); Platelet Count 141 K/mm3 (150-450); RBC Distribution Width CV 13.1 % (11.6-14.6); RBC Distribution Width SD 39.8 fl (35.1-43.9); Red Blood Count 4.39 M/mm3 (4.2-5.4); White Blood Count 9.1 K/mm3 (4.4-11.0)
[2021-12-15 16:07] LABS: AST(SGOT) 17 U/L (15-37); Alanine Aminotransfer ALT/SGPT 15 U/L (13-56); Creatinine, Serum 0.54 mg/dL (0.55-1.02); EST Glomerular Filtration Rate 141 mL/min (>60); Est Glom Filt Rate - Afr Amer 171 mL/min (>60); Estimated Creatinine Clearance 150.83 ml/min
[2021-12-15] MEDS: Labetalol 200 MG Tablet PO (17:06)
[2021-12-15 22:43] LABS: Group B Strep DNA By PCR POSITIVE (Negative); Probe Check PASS
[2021-12-16] VITALS (79 sets, daily range): BP systolic 99–161; BP diastolic 54–87; PULSE 56–99; RESP 15–18; TEMP 36.5–37.6; O2SAT 81–100
[2021-12-16] MEDS: Oxytocin 30 units/NS 500 ml 30 UNITS/500 ML IV.SOLN IV (03:10)
[2021-12-16] MEDS: Penicillin G 3,000,000 Units 50 ML 100 UNITS IV ×4 (07:03→19:22)
[2021-12-16 07:37] LABS: Hematocrit 37.3 % (37-47); Hemoglobin 12.4 g/dL (12.0-15.0); Mean Corp Hgb Conc 33.2 g/dL (32-36); Mean Corpuscular Hgb 28.3 pg (27.0-32.0); Mean Corpuscular Volume 85.2 fL (81-99); Platelet Count 143 K/mm3 (150-450); RBC Distribution Width CV 13.2 % (11.6-14.6); RBC Distribution Width SD 40.4 fl (35.1-43.9); Red Blood Count 4.38 M/mm3 (4.2-5.4); White Blood Count 10.7 K/mm3 (4.4-11.0)
[2021-12-16 07:53] LABS: ALB/GLOB Ratio 0.7 RATIO (0.9-2.4); AST(SGOT) 14 U/L (15-37); Alanine Aminotransfer ALT/SGPT 15 U/L (13-56); Albumin, Serum 2.9 g/dL (3.2-5.0); Alkaline Phosphatase 142 U/L (45-117); Anion Gap 9 (5-15); BUN 7 mg/dL (7-18); BUN/Creat Ratio 11.4 RATIO (10-20); Calcium,Total 7.6 mg/dL (8.5-10.1); Chloride 103 mmol/L (98-107); Creatinine, Serum 0.61 mg/dL (0.55-1.02); EST Glomerular Filtration Rate 123 mL/min (>60); Est Glom Filt Rate - Afr Amer 149 mL/min (>60); Estimated Creatinine Clearance 133.52 ml/min; Globulin 4.3 g/dL (2.2-4.2); Glucose 114 mg/dL (74-106); Protein, Total 7.2 g/dL (6.4-8.2); Sodium Level 134 mmol/L (136-145)
[2021-12-16] MEDS: 0.9% Normal Saline Single 100 ML IV.SOLN. INTRA-UTER (07:53)
--- NOTE | 2021-12-16 08:07 | PCM.PN.BLA ---
Progress Note pt is status post 3 doses of cytotec now. She is now 2-3 cm dilated, still 50% effaced and the nurses are having difficulty picking up contractions adequately and having difficulty tracing the baby on the monitor. Pitocin was started at 3 am. current tracing: FHT: 140-150 Moderate variability reactive no decelerations category I tracing [place]: unable to trace Contractions adequately cx: 2-3/50/-3, marcus bulb placed in cervix and inflated with 80cc NS. patient tolerated this well. A/P: 36 weeks 1 day severe pre-eclampsia, possible early hellp syndrome- plts increased from 133 to 143 with 1 dose of celestone -continue pitocin and plan for AROM with placement of internal monitors when able.
[2021-12-16] MEDS: fentaNYL-bupivacaine (epidural) 100 ML BAG EPIDURAL ×3 (09:02→19:07)
[2021-12-16] MEDS: Magnesium Sulfate 20 GM/500 ML BAG IV ×3 (09:13→21:00)
[2021-12-16] MEDS: Lactated Ringers 1,000 ML 200 ML IV ×2 (10:47→16:37)
--- NOTE | 2021-12-16 13:46 | PCM.PN.BLA ---
Progress Note marcus is out per nurse. pt consents to AROM current tracing: FHT: Moderate variability reactive no decelerations category I tracing [place]: unable to trace Contractions adequately cx: 6/80/-1 IUPC and FSE placed without difficulty. reviewed tracing abnormalities since last note: reassuring A/P: severe pre-eclampsia -continue pitocin -bp's reviewed -plts stable.
[2021-12-16] MEDS: Oxytocin 30 units/NS 500 ml 30 UNITS/500 ML IV.SOLN 334 UNITS IV (20:25)
--- NOTE | 2021-12-16 20:34 | EX.PCM.OBRPT ---
Assessment & Plan (1) Pre-eclampsia: (2) : QUALIFIERS: Weeks of gestation: 36 weeks Qualified Code(s): Z3A.36 - 36 weeks gestation of COMMENT: anatomy nl, addtnl kidney views @ 30-32 wks- nl. declines carrier, genetic and NTD; (3) Supervision of normal : QUALIFIERS: Normal : normal first Trimester: third trimester Qualified Code(s): Z34.03 - Encounter for supervision of normal first , third trimester COMMENT: PRR BRUNO: 01[birth year] girl Spouse: Edmundo (4) Family history of cleft palate: COMMENT: 2nd cousin (5) Obesity affecting : QUALIFIERS: Trimester: third trimester Qualified Code(s): O99.213 - Obesity complicating , third trimester COMMENT: nl growth scans, q 4 weeks. weekly nsts after 36. BMI 42. 1 tm gct nl, encouraged healthy weight gain. (6) Maternal varicella, non-immune: COMMENT: needs vaccine PP (7) induced hypertension: COMMENT: sending to L&D for pih work up and prot: cr. likely induce labor today (8) Abnormal glucose affecting : COMMENT: Normal 3 hr GTT. Borderline levels Maternal Data Information BRUNO Calculator Estimated Delivery Date Method Current WG Current Estimate 01/12/22 Ultrasound #1 36w 1d Other Estimates 01/05/22 LMP (Certain) 37w 1d Vaginal Delivery Maternal Presentation Maternal Presentation: Medically Indicated Induction Type of Induction: Pitocin, Barnett Bulb, Amniotomy and Cytotec Medical Reason for Induction: Preeclampsia, eclampsia Operative Information Date of Procedure: 12/16/21 Pre-Operative Diagnosis: 36 weeks with severe pre-eclampsia Post-Operative Diagnosis: 36 weeks with severe pre-eclampsia Surgery / Procedure Performed: Spontaneous Vaginal Delivery Type of Anesthesia: Epidural Estimated Blood Loss: 200cc Findings Description of Procedure: Patient began pushing and delivered the head in the CARMEN presentation. The head was delivered atraumatically. The anterior and posterior shoulders delivered without complication followed by the rest of the infant and the infant was placed on the maternal abdomen. Delayed cord clamping was employed for approximately 60 seconds. There was a true knot in the umbilical cord noted. The cord was clamped and cut and gentle traction was applied to the cord and the placenta delivered spontaneously immediately following it was noted to be intact with three-vessel cord. The perineum and vagina were inspected and noted to have a 1st degree perineal laceration repaired with a 3-0 vicryl rapide suture. EBL was 200cc. Patient and tolerated delivery well. Presentation: CARMEN Amniotic Membrane Rupture Type: Artificial Amniotic Fluid Description: Clear Placental Delivery Description: Spontaneous Placenta Disposition: [facility] Cord Vessel Description: 3 Vessels Cord Entanglement: None and True Knot(s) Infant A Gender: Female (1 minute): 8 (5 minute): 10 Delayed Cord Clamping: No Post Vaginal Delivery Medications Given After Delivery: IV Pitocin Episiotomy Description: None Laceration: 1st degree Complication Complications: None
--- NOTE | 2021-12-16 20:39 | PCM.DC ---
Discharge Instructions Diet Discharge Diet: No restrictions Activity Discharge Activity: Return to Normal Activity, May Not Drive (while taking narcotic pain medications.) and May Shower May resume sexual activity in: 4-6 weeks Dressing / Incision Call your doctor if your incision/area has: Continuous Slow Oozing, Sudden Increased Bleeding, Increased Pain/ Swelling, Increased Redness and Foul Smelling Discharge Follow Up Care Please Follow Up With: Lisa Dumont DO When: Call [phone] to make an appointment with your doctor in 6 weeks. If you had elevated blood pressure or 4th degree laceration, you will need to be seen in 2 weeks. Test Results: Test results from this visit will be discussed in further detail at your follow-up appointment, if applicable. Discharge Plan Admission Admit Date/Time: 12/15/21 11:26 Primary Reason for Your Visit: vaginal delivery, severe pre-eclampsia Attending Provider: Lisa Dumont Primary Care Provider: Joanne Leal NP Consulting Providers: Iesha Cheney Discharge Orders/Prescriptions Prescriptions: New ibuprofen 800 mg tablet 800 mg PO Q8H PRN (Reason: pain) 7 Days Qty: 30 RF: 0 Continued PNV-DHA 27 mg iron-1 mg -300 mg capsule 1 cap PO DAILY RF: 0 Referrals / Follow Up: Joanne Leal NP, SUPERANNUATION CLERK-C [Primary Care Provider] - Disposition Disposition (needs filled in before D/C Order can be placed): Home, Self Care
[2021-12-16] MEDS: Ibuprofen 600 MG Tablet PO (22:14)
[2021-12-17] VITALS (31 sets, daily range): BP systolic 119–157; BP diastolic 60–79; PULSE 73–94; RESP 14–18; TEMP 36.4–37.1; O2SAT 96–99
[2021-12-17] MEDS: Ibuprofen 600 MG Tablet PO ×2 (07:18→16:48)
[2021-12-17] MEDS: Labetalol 200 MG Tablet PO ×2 (07:43→21:47)
--- NOTE | 2021-12-17 08:19 | PCM.PN.OB ---
Subjective Subjective Patient doing well without complaints. Tolerating PO. Ambulating and voiding without difficulty. Feeding well. Denies chest pain, shortness of breath, calf pain/swelling, fevers, chills, lightheadedness. Objective Data Objective Data Vital Signs: Vital Signs Temp Pulse Resp BP Pulse Ox 98 F 76 16 144/77 H 99 12/17/21 07:30 12/17/21 07:35 12/17/21 07:30 12/17/21 07:35 12/17/21 07:35 Oxygen Delivery Method Room Air Weight: 278 lb 7.101 oz Body Mass Index (BMI) 43.6 Intake & Output: Intake and Output for Last 24 Hours 12/15/21 12/16/21 12/17/21 23:59 23:59 23:59 Intake Total 2150 / 2150 6753.97 / 6753.97 1600 / 1600 Output Total 1400 / 1400 2825 / 2825 800 / 800 Balance 750 / 750 3928.97 / 3928.97 800 / 800 Lab / Micro Data Result Diagrams: 12/16/21 07:30 12/16/21 07:30 Micro: Microbiology 12/15/21 11:35 Genital vaginal Group B Streptococcus Culture - Preliminary 12/15/21 11:35 Nasal Secretion SARS-CoV-2 Antigen (Rapid) - Final ROS Constitutional Constitutional: Denies chills, fatigue, fever(s), poor appetite or weakness Eyes Eyes: Denies blurry vision, change in vision, seeing flashes or spots in vision ENT HEENT: Denies dizziness, headache(s), loss taste/smell or sore throat Cardiovascular Cardiovascular: Denies chest pain, dizziness, dyspnea, irregular heart rhythm, palpitations or rapid heart rate Respiratory/Chest Respiratory/Chest: Denies chest tightness, cough, dyspnea or breast pain Gastrointestinal Gastrointestinal: Denies abdominal pain, constipation or vomiting Genitourinary Genitourinary: Denies dysuria or flank pain Musculoskeletal Musculoskeletal: Denies difficulty walking, joint pain, limited range of motion or numbness Neurologic Neurologic: Denies abnormal movements, abnormal speech, dizziness, numbness, seizure-like activity or syncope Psychiatric Psychiatric: Denies anxiety, behavioral changes, change in appetite, confusion, depression or suicidal thoughts Physical Exam Const alert, oriented x3 and no apparent distress General Appearance: cooperative and comfortable Resp normal respiratory effort Cardio regular rate GI normal to inspection, nondistended, normoactive bowel sounds GI Narrative: uterus is firm below umbilicus Palpation: soft Back/Spine no CVA tenderness and thoraco-lumbar ROM normal Extremity normal to inspection, no clubbing, cyanosis or edema, no calf tenderness and no pedal edema Psych mental status grossly normal, thought process normal, cooperative, affect normal, speech normal, activity/motor behavior normal, denies homicidal ideation and denies suicidal ideation Assessment & Plan (1) Status post vaginal delivery: COMMENT: IOL at 36 weeks for severe pre-e 12/16/21- BB girl Ranjan VANCE PLAN: s/p PPD # 1 1. routine post delivery care 2. breast feeding- support given 3. rh positive 4. rubella immune 5. stop mag at 8 pm tonight 6.continue labetalol 200 bid 7. discussed dc tomorrow if stable.
--- NOTE | 2021-12-17 08:32 | NURSING ---
Per Dr. Gabriel, start Labetalol 200 mg PO BID. Magnesium infusion can be discontinued at 2000 tonight.
--- NOTE | 2021-12-17 11:15 | NURSING ---
Bedside report given to Meghann Templeton RN
[2021-12-17] MEDS: Magnesium Sulfate 20 GM/500 ML BAG IV (11:48)
[2021-12-17] MEDS: Acetaminophen 500 MG Tablet 1000 MG PO (22:50)
[2021-12-18 00:28] VITALS: BP 110/58; PULSE 70; RESP 14; TEMP 36.6
[2021-12-18 03:22] VITALS: BP 131/70; PULSE 73; RESP 16; TEMP 37.1
[2021-12-18 06:23] VITALS: BP 127/83
--- NOTE | 2021-12-18 06:31 | PCM.PN.OB ---
Subjective Subjective Patient doing well without complaints. Tolerating PO. Ambulating and voiding without difficulty. feeding well. Denies chest pain, shortness of breath, calf pain/swelling, fevers, chills, lightheadedness. Objective Data Objective Data Vital Signs: Vital Signs Temp Pulse Resp BP Pulse Ox 98.8 F 73 16 127/83 H 97 12/18/21 03:22 12/18/21 03:22 12/18/21 03:22 12/18/21 06:23 12/17/21 19:59 Oxygen Delivery Method Room Air Weight: 278 lb 7.101 oz Body Mass Index (BMI) 43.6 Intake & Output: Intake and Output for Last 24 Hours 12/16/21 12/17/21 12/18/21 23:59 23:59 23:59 Intake Total 6753.97 / 6753.97 3375.00 / 3375.00 Output Total 2825 / 2825 2850 / 2850 650 / 650 Balance 3928.97 / 3928.97 525.00 / 525.00 -650 / -650 Lab / Micro Data Result Diagrams: 12/16/21 07:30 12/16/21 07:30 Micro: Microbiology 12/15/21 11:35 Genital vaginal Group B Streptococcus Culture - Preliminary 12/15/21 11:35 Nasal Secretion SARS-CoV-2 Antigen (Rapid) - Final ROS Constitutional Constitutional: Reports systems reviewed and no addt'l complaints, except as documented Cardiovascular Cardiovascular: Reports systems reviewed and no addt'l complaints, except as documented Respiratory/Chest Respiratory/Chest: Reports systems reviewed and no addt'l complaints, except as documented Gastrointestinal Gastrointestinal: Reports systems reviewed and no addt'l complaints, except as documented Physical Exam Const alert, oriented x3 and no apparent distress HEENT Head and Scalp: atraumatic Resp normal respiratory effort GI soft to palpation and non-tender Bimanual Exam - Vag & Uterus: uterus non-tender Uterus Palpation: uterus fundus firm (below Umbilicus) Assessment & Plan (1) Status post vaginal delivery: COMMENT: IOL at 36 weeks for severe pre-e 12/16/21- BB girl Felisha- RAJIV (2) Infertility: COMMENT: Femara (3) Pre-eclampsia: (4) Maternal varicella, non-immune: COMMENT: needs vaccine PP PLAN: s/p PPD # 2 1. routine post delivery care 2. breast feeding- support given 3. rh positive 4. rubella immune preeclampsia- labetalol 200 BID dc home today
[2021-12-18 08:48] VITALS: BP 133/76; PULSE 70; RESP 16; TEMP 37.1; O2SAT 99
[2021-12-18] MEDS: Ibuprofen 600 MG Tablet PO (08:51)
[2021-12-18] MEDS: Labetalol 200 MG Tablet PO (08:52)
[2021-12-18 14:05] VITALS: BP 139/82; PULSE 87; RESP 14; TEMP 37; O2SAT 97
[2021-12-18 18:33] VITALS: BP 134/79; PULSE 76; RESP 16; TEMP 36.6; O2SAT 99
== END 2021-12-18 19:00 | disposition home or self-care (01) | DRG 807 ==
LOC: WPOUT 11:32 → WP 11:32
PROVIDERS: Admitting Provider Obstetrics & Gynecology; PCP Nurse Practitioner; Visit Provider Obstetrics & Gynecology
DX: O14.14 Severe pre-eclampsia complicating childbirth (principal); Z37.0 Single live birth; E66.9 Obesity, unspecified; O70.0 First degree perineal laceration during delivery; O14.23 HELLP syndrome (HELLP), third trimester; O99.213 Obesity complicating pregnancy, third trimester; Z3A.36 36 weeks gestation of pregnancy; O69.2XX0 Labor and delivery complicated by other cord entanglement, with compression, not applicable or unspecified
CPT/HCPCS: 36415; 59025; 59050; 76816; 80053; 82565; 82570; 84156; 84450; 84460; 84550; 85027; 86850; 86900; 86901; 87077; 87081; 87426; 87653; 99218; J7120; G0378; J0702; J3490

== ENCOUNTER → 2023-01-30 | Outpatient (CLI) | payer BC, SELFPAY ==
[2023-01-30 10:19] LABS: T4 Free Direct 0.95 ng/dL (0.76-1.46); Thyroid Stim Hormone (TSH) 3.39 uIU/mL (0.358-3.74)
[2023-01-31 04:07] LABS: Thyroid Peroxidase AB 12 IU/mL (0-34)
[2023-02-01 20:24] LABS: HPV Reflexed? NOT INDICATED
== END | disposition home or self-care (01) ==
PROVIDERS: PCP Nurse Practitioner; Referring Provider Obstetrics & Gynecology; Visit Provider Obstetrics & Gynecology
DX: Z12.4 Encounter for screening for malignant neoplasm of cervix (principal); Z13.29 Encounter for screening for other suspected endocrine disorder; E01.0 Iodine-deficiency related diffuse (endemic) goiter
CPT/HCPCS: 36415; 84439; 84443; 86376; 88175; G0145

== ENCOUNTER → 2023-02-13 | Outpatient (CLI) | payer BC, SELFPAY ==
--- NOTE | 2023-02-13 12:46 | US_ITS ---
EXAM: US SOFT TISSUES HEAD AND NECK, THYROID CLINICAL INDICATION: Thyromegaly TECHNIQUE: Greyscale and color doppler imaging was performed of the thyroid gland. COMPARISON: No relevant prior studies available. FINDINGS: LEFT THYROID LOBE: Left lobe measures 4.1 x 1.7 x 1.5 cm. Spongiform nodule measuring 4 x 3 x 4 mm left lobe of the thyroid. Homogeneous echotexture with normal vascularity. RIGHT THYROID LOBE: Right lobe measures 4.7 x 2.0 x 1.6 cm. Homogeneous echotexture with normal vascularity. No thyroid nodules are present. ISTHMUS: Thyroid isthmus measures 0.3 cm. No thyroid nodules are present. US/Thyroid IMPRESSION: Spongiform nodule measuring 4 x 3 x 4 mm left lobe of the thyroid. TI-RADS points: 0. TI-RADS category: TR1. This nodule is benign and no FNA or follow-up is necessary. Electronically Signed: Filippo Burton MD at 0:45 EDT ,
== END | disposition home or self-care (01) ==
LOC: US 12:45
PROVIDERS: PCP Nurse Practitioner; Referring Provider Obstetrics & Gynecology; Visit Provider Obstetrics & Gynecology
DX: E01.0 Iodine-deficiency related diffuse (endemic) goiter (principal)
CPT/HCPCS: 76536

== ENCOUNTER → 2023-09-25 | Outpatient (CLI) | payer BC, SELFPAY ==
[2023-09-25 16:48] LABS: Creatinine, Urine (random) < 13.00 mg/dL (NO RANGE EST.); Protein, Urine (Random) < 6.0 mg/dL (<11.9)
--- OUTSIDE RECORDS SUMMARY | 2023-09-25 17:10 | XMS RPT_ITS | CCD ---
Author Name Unknown Address [address] [place] [address] Organization [facility] Results Test Name Value Interpretation Reference Range Facil ity Clinical Note 09-16-2021 Note Date & Type Note Facility 09-16-2021 Note Pt aware of prior an d current renal dilation noted on follow up today. Discussed referral for genetics and follow up should persist past 28 weeks. Set up telehealth GC and follow up at 28-32 weeks. [facility] Summary Purpose Family History No Family History Records Found Advance Directives No Advanced Directives Records Found Additional Source Comments INFORMATION SOURCE (unrecogn ized section and content) FOR RECORDS PERTAINING TO PATIENTS WHO ARE OR HAVE BEEN ENROLLED IN A CHEMICAL DEPENDENCY/SUBSTANCEABUSE PROGRAM, SOME INFORMATION MAY BE OMITTED. This clinical summary was aggregated from multiple sources. Caution should be exercised in using it in the provision of clinical care. This summary normalizes information from multiple sources, and as a consequence, information in this document may materially change the coding, format and clinical context of patient data. In addition, data may be omitted in some cases. CLINICAL DECISIONS SHOULD BE BASED ON THE PRIMARY CLINICAL RECORDS. [employer] provides no warranty or guarantee of the accuracy or completeness of information in this document.
[2023-09-28 05:08] LABS: Chlamydia By Nucleic Acid AMP Negative (Negative); Gonococcus By Nucleic Acid AMP Negative (Negative)
== END | disposition home or self-care (01) ==
LOC: LABSPEC 14:14
PROVIDERS: PCP Nurse Practitioner; Referring Provider Advanced Practice Midwife; Visit Provider Advanced Practice Midwife
DX: O09.299 Supervision of pregnancy with other poor reproductive or obstetric history, unspecified trimester (principal); Z3A.00 Weeks of gestation of pregnancy not specified
CPT/HCPCS: 82570; 84156; 87086; 87088; 87491; 87591

== ENCOUNTER → 2023-10-10 | Outpatient (CLI) | payer BC, SELFPAY ==
--- OUTSIDE RECORDS SUMMARY | 2023-10-10 11:45 | XMS RPT_ITS | CCD ---
Author Name Unknown Address [address] [place] [address] Organization [facility] Results Test Name Value Interpretation Reference Range Facil ity Clinical Note 09-16-2021 Note Date & Type Note Facility 09-16-2021 Note Pt aware of prior an d current renal dilation noted on follow up today. Discussed referral for genetics and follow up should persist past 28 weeks. Set up telehealth GC and follow up at 28-32 weeks. [facility] Summary Purpose Family History No Family [...] BE BASED ON THE PRIMARY CLINICAL RECORDS. [employer] provides no warranty or guarantee of the accuracy or completeness of information in this document.
[2023-10-10 11:46] LABS: Absolute Neutrophil Count 4.6 X10^3/uL (2.0-7.7); Basophil# 0.03 X10^3/uL; Basophil% 0.4 % (0-1); Eosinophil# 0.08 X10^3/uL; Eosinophils% 1.1 % (0-5); Hematocrit 39.1 % (37-47); Hemoglobin 13.1 g/dL (12.0-15.0); Lymphocyte % 28.7 % (19-41); Mean Corp Hgb Conc 33.5 g/dL (32-36); Mean Corpuscular Hgb 28.1 pg (27.0-32.0); Mean Corpuscular Volume 83.7 fL (81-99); Mean Platelet Vol. 11.9 fl (6.2-12.0); Monocyte# 0.43 X10^3/uL; Monocyte% 5.9 % (0-10); NRBC Flagged by Analyzer 0 % (0-5); Neutrophil # 4.64 X10^3/uL (2.7-7.7); Neutrophil % 63.5 % (47-70); Platelet Count 188 K/mm3 (150-450); RBC Distribution Width CV 13.7 % (11.6-14.6); RBC Distribution Width SD 41.4 fl (35.1-43.9); Red Blood Count 4.67 M/mm3 (4.2-5.4); White Blood Count 7.3 K/mm3 (4.4-11.0)
[2023-10-10 12:04] LABS: Hemoglobin A1c 5.4 % (3.8-5.6)
[2023-10-10 12:09] LABS: ALB/GLOB Ratio 0.9 RATIO (0.9-2.4); AST(SGOT) 17 U/L (15-37); Alanine Aminotransfer ALT/SGPT 36 U/L (13-56); Albumin, Serum 3.7 g/dL (3.2-5.0); Alkaline Phosphatase 72 U/L (45-117); Anion Gap 8 (5-15); BUN 10 mg/dL (7-18); BUN/Creat Ratio 15.6 RATIO (10-20); Calcium,Total 9.3 mg/dL (8.5-10.1); Chloride 107 mmol/L (98-107); Creatinine, Serum 0.64 mg/dL (0.55-1.02); EST Glomerular Filtration Rate 116 mL/min (>60); Est Glom Filt Rate - Afr Amer 140 mL/min (>60); Glucose 90 mg/dL (74-106); Potassium 3.8 mmol/L (3.5-5.1); Protein, Total 7.7 g/dL (6.4-8.2); Sodium Level 139 mmol/L (136-145)
[2023-10-10 12:52] LABS: HIV - WCH Non-Reactive (Nonreactive); Hepatitis B Surface Antigen Non-Reactive (Nonreactive); Hepatitis C Antibody Non-Reactive (Nonreactive); Rubella IgG Reactive (Nonreactive); Syphilis Antibodies Non-reactive
[2023-10-11 05:07] LABS: V-Zoster IgG (Immunity) < 135 index (Immune >165)
== END | disposition home or self-care (01) ==
LOC: PAVLAB 11:24
PROVIDERS: Advanced Practice Midwife; PCP Nurse Practitioner; Referring Provider Nurse Practitioner Women's Health; Visit Provider Nurse Practitioner Women's Health
DX: O09.299 Supervision of pregnancy with other poor reproductive or obstetric history, unspecified trimester (principal); Z3A.00 Weeks of gestation of pregnancy not specified
CPT/HCPCS: 36415; 80053; 83036; 85025; 86703; 86762; 86780; 86787; 86803; 86850; 86900; 86901; 87340

== ENCOUNTER → 2024-02-21 | Outpatient (CLI) | payer OTHER, SELFPAY ==
[2024-02-21 09:27] LABS: Absolute Lymphocyte Count 1.78 X10^3/uL (0.83-4.51); Absolute Neutrophil Count 5.3 X10^3/uL (2.0-7.7); Basophil# 0.01 X10^3/uL; Basophil% 0.1 % (0-1); Eosinophil# 0.15 X10^3/uL; Hematocrit 36.7 % (37-47); Hemoglobin 12.3 g/dL (12.0-15.0); Lymphocyte # 1.78 X10^3/ul (0.83-4.51); Lymphocyte % 23.4 % (19-41); Mean Corp Hgb Conc 33.5 g/dL (32-36); Mean Corpuscular Hgb 29.6 pg (27.0-32.0); Mean Corpuscular Volume 88.2 fL (81-99); Monocyte% 3.9 % (0-10); NRBC Flagged by Analyzer 0 % (0-5); Neutrophil # 5.32 X10^3/uL (2.7-7.7); Neutrophil % 70.1 % (47-70); Platelet Count 169 K/mm3 (150-450); RBC Distribution Width CV 12.9 % (11.6-14.6); RBC Distribution Width SD 41.9 fl (35.1-43.9); Red Blood Count 4.16 M/mm3 (4.2-5.4); White Blood Count 7.6 K/mm3 (4.4-11.0)
[2024-02-21 09:44] LABS: Glucose Challenge Gest 1H 50g 161 mg/dL (70-140)
[2024-02-21 10:19] LABS: HIV - WCH Non-Reactive (Nonreactive); Syphilis Antibodies Non-reactive
== END | disposition home or self-care (01) ==
LOC: PAVLAB 09:00
PROVIDERS: Nurse Practitioner Women's Health; PCP Nurse Practitioner; Referring Provider Obstetrics & Gynecology; Visit Provider Obstetrics & Gynecology
DX: Z34.92 Encounter for supervision of normal pregnancy, unspecified, second trimester (principal); Z3A.25 25 weeks gestation of pregnancy
CPT/HCPCS: 36415; 82950; 85025; 86703; 86780

== ENCOUNTER 2024-02-29 06:54 | Outpatient (CLI) | payer OTHER, SELFPAY ==
[2024-02-29 08:37] LABS: Glucose GTT-Gestation. Fasting 106 mg/dL (<105)
[2024-02-29 08:59] LABS: Glucose GTT-Gestational 1 Hr 157 mg/dL (<190)
[2024-02-29 09:35] LABS: Glucose GTT-Gestational 2 Hr 137 mg/dL (<165)
[2024-02-29 11:01] LABS: Glucose GTT-Gestational 3 Hr 154 L (<145)
== END 2024-02-29 23:59 | disposition home or self-care (01) ==
LOC: LAB 06:55
PROVIDERS: PCP Nurse Practitioner; Visit Provider Nurse Practitioner Women's Health
DX: Z13.1 Encounter for screening for diabetes mellitus (principal)
CPT/HCPCS: 36415; 82951; 82952

== ENCOUNTER → 2024-04-03 | Outpatient (CLI) | payer OTHER, SELFPAY ==
--- NOTE | 2024-04-03 15:24 | US_ITS ---
STUDY: OBSTETRICAL ULTRASOUND - BIOPHYSICAL PROFILE REASON FOR EXAM: Female, 28 years old Obesity LMP: PRIOR ULTRASOUND: None. TECHNIQUE: Transabdominal TECHNICAL QUALITY: Adequate. FINDINGS: There is a single intrauterine fetus. The fetus is in a cephalic presentation. There is demonstrated cardiac activity with a heart rate of 136 bpm. There is a normal amniotic fluid volume. The largest amniotic fluid pocket measures 3.6 cm. The amniotic fluid index (SARKIA) is 11.9 cm. The placenta is anterior in location and is not low lying. There are Grade 0 placental changes. Age by LMP: 34 weeks, 1 days. BRUNO by LMP: 05/14/2024. Gender: Male BIOPHYSICAL PROFILE: Breathing Movements (FBM): 2 Gross Body Movements (GBM): 2 Tone (FT): 2 Amniotic Fluid Volume (AFV): 2 TOTAL SCORE: US/Biophysical Prof W/O Non Stres IMPRESSION: Normal biophysical profile of 03/14. Electronically Signed: Brent Aponte MD at 17:35 EDT ,
== END | disposition home or self-care (01) ==
PROVIDERS: PCP Nurse Practitioner; Referring Provider Nurse Practitioner Women's Health; Visit Provider Nurse Practitioner Women's Health
DX: O99.213 Obesity complicating pregnancy, third trimester (principal); Z3A.00 Weeks of gestation of pregnancy not specified
CPT/HCPCS: 76819

== ENCOUNTER → 2024-04-10 | Outpatient (CLI) | payer OTHER, SELFPAY ==
--- NOTE | 2024-04-10 16:21 | US_ITS ---
STUDY: OBSTETRICAL ULTRASOUND - BIOPHYSICAL PROFILE REASON FOR EXAM: Female, 28 years old. Obesity LMP: Unknown. PRIOR ULTRASOUND: 03/26/2024 TECHNIQUE: Transabdominal ultrasound evaluation was performed. FINDINGS: There is a single intrauterine fetus. The fetus is in a cephalic presentation. There is demonstrated cardiac activity with a heart rate of 130 bpm. There is a normal amniotic fluid volume. The amniotic fluid index (SARIKA) is 9.04 cm. The placenta is anterior in location and is not low lying. BIOPHYSICAL PROFILE: Breathing Movements (FBM): 2 Gross Body Movements (GBM): 2 Tone (FT): 2 Amniotic Fluid Volume (AFV): 2 TOTAL SCORE: US/Biophysical Prof W/O Non Stres IMPRESSION: Normal biophysical profile of 03/14. Electronically Signed: Casey Baker MD at 14:43 EDT ,
== END | disposition home or self-care (01) ==
LOC: US 16:20
PROVIDERS: PCP Nurse Practitioner; Referring Provider Nurse Practitioner Women's Health; Visit Provider Nurse Practitioner Women's Health
DX: O99.213 Obesity complicating pregnancy, third trimester (principal); Z3A.00 Weeks of gestation of pregnancy not specified
CPT/HCPCS: 76819

== ENCOUNTER → 2024-04-15 | Outpatient (CLI) | payer OTHER, SELFPAY ==
--- NOTE | 2024-04-15 15:27 | US_ITS ---
EXAM: US SECOND OR THIRD TRIMESTER , TRANSABDOMINAL CLINICAL INDICATION: wellbeing -- 32 Weeks TECHNIQUE: Transabdominal obstetrical ultrasound of the maternal pelvis and a second or third trimester with image documentation. COMPARISON: April 10, 2024. FINDINGS: FETUS: HEART RATE: 138 bpm. PRESENTATION: Cephalic. PLACENTA: Anterior, grade 2. No placenta previa. No abruption. AMNIOTIC FLUID: Unremarkable. Maximum vertical pocket 5.5 cm. 4 quadrant SARIKA 10.8 cm. ANATOMY: Limited exam. BIOMETRICS GESTATIONAL AGE: 36 weeks 5 days. BRUNO: May 08, 2024. EFW: 3086 g +/- 463 g, 74.5 percentile. BPD: 36 weeks 1 day. HC: 37 weeks 4 days. AC: 37 weeks 5 days. FL: 35 weeks 4 days. MATERNAL: UTERUS: Unremarkable. No myometrial mass. CERVIX: Not visualized. ADNEXA: Not demonstrated. FREE FLUID: None. BIOPHYSICAL PROFILE: 88. RATIOS: All standard ratios are within normal limits. IMPRESSION: Single live intrauterine . No acute abnormality. Biophysical profile 03/14. Cephalic presentation. Electronically Signed: Pauline Vasquez MD at 3:14 EDT , EXAM: US SECOND OR THIRD TRIMESTER , TRANSABDOMINAL CLINICAL INDICATION: wellbeing -- 32 Weeks TECHNIQUE: Transabdominal obstetrical ultrasound of the maternal pelvis and a second or third trimester with image documentation. COMPARISON: April 10, 2024. FINDINGS: FETUS: HEART RATE: 138 bpm. PRESENTATION: Cephalic. PLACENTA: Anterior, grade 2. No placenta previa. No abruption. AMNIOTIC FLUID: Unremarkable. Maximum vertical pocket 5.5 cm. 4 quadrant SARIKA 10.8 cm. ANATOMY: Limited exam. BIOMETRICS GESTATIONAL AGE: 36 weeks 5 days. BRUNO: May 08, 2024. EFW: 3086 g +/- 463 g, 74.5 percentile. BPD: 36 weeks 1 day. HC: 37 weeks 4 days. AC: 37 weeks 5 days. FL: 35 weeks 4 days. MATERNAL: UTERUS: Unremarkable. No myometrial mass. CERVIX: Not visualized. ADNEXA: Not demonstrated. FREE FLUID: None. BIOPHYSICAL PROFILE: 88. RATIOS: All standard ratios are within normal limits. US/OB Limited With Biometrics
== END | disposition home or self-care (01) ==
LOC: US 15:24
PROVIDERS: PCP Nurse Practitioner; Referring Provider Nurse Practitioner Women's Health; Visit Provider Nurse Practitioner Women's Health
DX: O99.213 Obesity complicating pregnancy, third trimester (principal); O43.113 Circumvallate placenta, third trimester; Z3A.32 32 weeks gestation of pregnancy
CPT/HCPCS: 76816; 76819

== ENCOUNTER → 2024-04-19 | Outpatient (CLI) | payer OTHER, SELFPAY | END | disposition home or self-care (01) | LOC: LABSPEC 12:05 | PROVIDERS: PCP Nurse Practitioner; Referring Provider Obstetrics & Gynecology; Visit Provider Obstetrics & Gynecology | DX: O09.93 Supervision of high risk pregnancy, unspecified, third trimester (principal); Z3A.00 Weeks of gestation of pregnancy not specified | CPT/HCPCS: 87077; 87081 ==

== ENCOUNTER 2024-04-22 16:22 | Inpatient (IN) | payer OTHER, SELFPAY ==
[2024-04-22] VITALS (10 sets, daily range): BP systolic 126–142; BP diastolic 73–92; PULSE 69–91; RESP 16; TEMP 36.7–36.9; O2SAT 98–99; BMI 40.8
--- NOTE | 2024-04-22 15:28 | US_ITS ---
STUDY: Ultrasound OB Biophysical Profile REASON FOR EXAM: Female, 28 years old obesity TECHNIQUE: Transabdominal PRIOR ULTRASOUND: 04/15/2024. FINDINGS: There is a single intrauterine fetus. The fetus is in a cephalic presentation. There is demonstrated cardiac activity with a heart rate of 144 bpm. There is decreased amniotic fluid volume consistent with oligohydramnios. The largest amniotic fluid pocket measures 3.3 cm. The amniotic fluid index (SARIKA) is 4.8 cm. The placenta is anterior in location and is not low lying. There are Grade 2 placental changes. BIOPHYSICAL PROFILE (BPP): 4/8 -- Breathin/2. -- Movement: 0/2. -- Tone: 0/2. --SARIKA: 2/2. US/Biophysical Prof W/O Non Stres IMPRESSION: Abnormal BPP of 4/8 with abnormal tone and no gross body movements. There is also oligohydramnios. Consider umbilical artery doppler US and stat OB consult. Electronically Signed: Carlos Luna MD at 17:30 EDT ,
--- NOTE | 2024-04-22 17:00 | HP.PCM.OB_ITS ---
HPI - General General Date of Admission: 04/22/24 HPI Narrative KD MCELROY, is a 28 F who presents with oligohydramnios SARIKA of 4.8 cm and 4/8 BPP. gdm controlled with metformin. Maternal Data Information BRUNO Calculator Estimated Delivery Date Method Current WG Current Estimate 05/14/24 Ultrasound #1 36w 6d Other Estimates 05/05/24 LMP (Certain) 38w 1d PFSH PFS Medical History Infertility Abnormal glucose affecting Home Medications ?Medication ?Instructions ?Recorded ?Last Taken ?Type multivitamin no.47-iron fum 27 cap PO 09/22/23 Unknown History mg-folate no.1 1 mg-dha 300 mg capsule (PNV-DHA) blood sugar diagnostic (Blood #50 ea 03/01/24 Unknown Rx Glucose Test strips) blood-glucose meter #1 ea 03/01/24 Unknown Rx lancets (Accu-Chek Softclix #100 ea 03/01/24 Unknown Rx Lancets) metformin 1,000 mg tablet 1,500 mg (1.5 x 1,000 mg) PO HS 30 04/19/24 Unknown Rx days #45 tabs Allergy/AdvReac Type Severity Reaction Status Date / Time No Known Allergies Allergy Verified 04/22/24 16:39 Family History Father Heart disease Sister demise 18 weeks Grandfather Cancer, Onset Age: 38 Paternal Surgical History [place] teeth extracted Status post vaginal delivery History of cholecystectomy Social History adopted: No household members: spouse and children housing: house number of children: 1 current occupational status: employed 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 - [employer] current occupational exposures/hazards: No pets and animals: No history of recent travel: No sexually active: Yes Smoking Status: Never smoker second hand exposure: No alcohol intake: current alcohol intake frequency: holidays/special occasions only details: not while substance use type: does not use well-balanced diet: daily or most days caffeine: Yes Type: other Number of servings: 1 eating out: 1-3 times/week during the past year weight has: decreased > 10 lbs what type of physical activity do you participate in: walking and weight training frequency: 3-4 times per week duration: 30-45 minutes/day kj/hinduism: Yarsani seatbelt use: always do you feel safe at home: Yes 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 Date Name GA/Weeks Outcome Route Bth Weight Infant Gen Labor Lgth Anesthesia Del Locatn Provider FOB Unknown 09/2020 Miscarriage 12/16/21 [place] 36 live - 4lbs 15oz Female ep idural [facility] Lisa Dumont Delivery Date: 12/16/21 Last Updated by: Leydi Joel See problem list for complications and pre-e. Visit Details Expected Delivery Route/Plan Labor Preferences- CB/BF classes: no labor support person: Edmundo labor intervention preferences: [] pain management options preferred: epidural if requested cut cord/dad catch: cord : yes PP control planned: discussed discussed possible routes of delivery and associated risks: [] special requests: [] Plans Covid status: [] Flu vaccine: [] Tdap vaccine: declines Rhogam: NA LARC form signed: yes Problem list reviewed and updated with the most current plan of care details and appropriate orders placed. Relevant counseling for the gestational age provided. Continue routine care and follow up unless otherwise noted in visit notes/problem list details OB Flowsheet Initial Weight: Not Recorded Date -?-?-?-?-?-?-?-?-?-?-?-?- EGA Weight BP Urine Prot -?-?-?-?-?-?-?-?-?-?-?-?- Glucose FHR FuHt Pres Dilation -?-?-?-?-?-?-?-?-?-?-?-?- Effaced St Visit Note 09/25/23 -?-?-?-?-?-?-?-?-?-?-?-?- 6w 6d 255 lb 137/91 -?-?-?-?-?-?-?-?-?-?-?-?- 114 -?-?-?-?-?-?-?-?-?-?-?-?- kw- crl not cons with dates. measuring 6.6 weeks. RTO in 2 weeks for rescan. declines NIPT kw- crl not cons with dates. measuring 6.6 weeks. RTO in 2 weeks for rescan. declines NIPT. pre e and A1C labs ordered with NOB labs 10/10/23 -?-?-?-?-?-?-?-?-?-?-?-?- 9w 0d 251 lb 4 oz 131/85 Nega tive -?-?-?-?-?-?-?-?-?-?-?-?- Negative 168 -?-?-?--?-?-?-?-?-?-?-?-?- KW- repeat scan CRL cons with 9.0 weeks. doing well. 11/08/23 -?-?-?-?-?-?-?-?-?-?-?-?- 13w 1d 250 lb 147/84 121/84 -?-?-?-?-?-?-?-?-?-?-?--?- 160 -?-?-?-?-?-?-?-?-?-?-?-?- JV- no cramping or spotting. anatomy scan ordered. 12/08/23 -?-?-?-?-?-?-?-?-?-?-?-?- 17w 3d 252 lb 2 oz 123/84 Nega tive -?-?-?-?-?-?-?-?-?-?-?-?- Negative 154 -?-?-?-?-?-?-?-?-?-?-?-?- JV- feeling move ment. has anatomy scan on 12/25. no other complaint. 01/02/24 -?-?-?-?-?-?-?-?-?-?-?-?- 21w 0d 256 lb 136/87 -?-?-?-?-?-?-?-?-?-?-?-?- 140 -?-?-?-?-?-?-?-?-?-?-?-?- SM- no vb lof go od fm no regular ctx 01/31/24 -?-?-?-?-?-?-?-?-?-?-?-?- 25w 1d 258 lb 124/82 Negative -?-?-?-?-?-?-?-?-?-?-?-?- Negative 130 26 -?-?-?-?-?-?-?-?-?-?-?-?- MH-No VB, LOF. G ood FM. Discussed with SM and will cont next growth w/MFM but can do BPPs with [facility] wkly at 34 wk 02/21/24 -?-?-?-?-?-?-?-?-?-?-?-?- 28w 1d 261 lb 117/75 Negative -?-?-?-?-?-?-?-?-?-?-?-?- Negative 147 29 -?-?-?-?-?-?-?-?-?-?-?-?- MH-No VB, LOF. G ood Fm. Needs 3 hr GTT. Will start growth US with [facility] at 32 and 36 wk and also do her weekly BPPs at 34 wk with [facility] 03/04/24 -?-?-?-?-?-?-?-?-?-?-?-?- 29w 6d 264 lb 117/81 Negative -?-?-?-?-?-?-?-?-?-?-?-?- Negative 140 31 -?-?-?-?-?-?-?-?-?-?-?-?- KW- no vb/lof/ct x. good fm. GDM-discussed POC. picked up supplies today and will bring readings to next appt. 03/18/24 -?-?-?-?-?-?-?-?-?-?-?-?- 31w 6d 257 lb 2 oz 119/80 Nega tive -?-?-?-?-?-?-?-?-?-?-?-?- Negative 135 32 -?-?-?-?-?-?--?-?-?-?-?-?- JV- fasting gluc ose levels are getting high. She has some opportunity to cut out carbs though and wants to try this for a week. Adding a protein at bedtime may also help. She will update us via the portal and we can decide if going to start metformin at bedtime. 04/04/24 -?-?-?-?-?-?-?-?-?-?-?-?- 34w 2d 256 lb 108/76 Negative -?-?-?--?-?-?-?-?-?-?-?-?- Negative 140 34 -?-?-?-?-?-?-?-?-?-?-?-?- SM- no vb lof go od fm no regular ctx BS getting better controlled with metformin bpp and sarkia normal yeterday 04/11/24 -?-?-?-?-?-?-?-?-?-?-?-?- 35w 2d 256 lb 8 oz 114/76 Nega tive -?-?-?-?-?-?-?-?-?-?-?-?- Negative 130 36 -?-?-?-?-?-?-?-?-?-?-?-?- JV- fasting leve ls in the high 90's. had a few up to 108. if still high next visit she knows we may need to switch to NPH 04/19/24 -?-?-?-?-?-?-?-?-?-?-?-?- 36w 3d 254 lb 2 oz 128/85 Nega tive -?-?-?-?-?-?-?-?-?-?-?-?- Negative 140 37 Cephalic -?-?-?-?-?-?-?-?-?-?-?-?- SM- elevated fas tings, will increase to 1500 at night, gbs today NST FHR Rate Baby A Baseline: 130 Variability:: Moderate Accelerations:: 15 x 15 Decelerations:: None NST Reactive:: Yes FHR Category:: Category I Uterine Activity:: irregular ROS Constitutional Constitutional: Reports systems reviewed and no addt'l complaints, except as documented Eyes Eyes: Denies change in vision ENT HEENT: Reports systems reviewed and no addt'l complaints, except as documented; Denies headache(s) Cardiovascular Cardiovascular: Reports systems reviewed and no addt'l complaints, except as documented; Denies chest pain or dyspnea Respiratory/Chest Respiratory/Chest: Reports systems reviewed and no addt'l complaints, except as documented Gastrointestinal Gastrointestinal: Reports systems reviewed and no addt'l complaints, except as documented; Denies abdominal pain Genitourinary Genitourinary: Reports systems reviewed and no addt'l complaints, except as documented, contractions Details: present (irregular) and movement Details: present; Denies dysuria or genital lesions Musculoskeletal Musculoskeletal: Reports systems reviewed and no addt'l complaints, except as documented Neurologic Neurologic: Reports systems reviewed and no addt'l complaints, except as documented Endocrine Endocrinology: Reports systems reviewed and no addt'l complaints, except as documented Vital Signs Vital Signs Vital Signs: 04/22/24 16:21 04/22/24 16:21 04/22/24 16:33 Pulse Rate 88 91 Blood Pressure BP Systolic BP Diastolic Pulse Ox 99 04/22/24 16:33 04/22/24 16:38 04/22/24 16:38 Pulse Rate 90 Blood Pressure BP Systolic BP Diastolic Pulse Ox 99 99 04/22/24 16:41 04/22/24 16:41 04/22/24 16:43 Pulse Rate 87 Blood Pressure 142/91 H 142/92 H BP Systolic 142 142 BP Diastolic 91 92 Pulse Ox 04/22/24 16:43 Pulse Rate 82 Blood Pressure BP Systolic BP Diastolic Pulse Ox Weight Weight: 260 lb 12.909 oz Body Mass Index (BMI) 40.8 Physical Exam Const alert, oriented x3, no apparent distress and healthy appearing HEENT normocephalic and moist oral mucous membranes Head and Scalp: atraumatic Neck full ROM, no lymphadenopathy, supple and thyroid normal General: trachea midline Lymph Lymphatic: no lymphadenopathy noted Chest inspection of chest normal Resp normal respiratory effort Cardio regular rate GI normal to inspection, nondistended, normoactive bowel sounds, soft to palpation and non-tender Inspection: gravid external exam normal Manual OB Exam: estimated gestational size appropriate, presentation cephalic, dilated, effaced and station Extremity normal to inspection General Extremity: Negative for edema Skin no rashes or lesions noted Neuro no focal motor deficits and deep tendon reflexes 2+ bilaterally Motor Exam: strength 5/5 throughout and clonus absent Psych mental status grossly normal Labs Labs Labs: Blood Type B POSITIVE Antibody Screen NEGATIVE Hct 36.7 % (37-47) L
--- NOTE | 2024-04-22 17:00 | PCM.HP.OB ---
HPI - General General Date of Admission: 04/22/24 HPI Narrative KD MCELROY, is a 28 F who presents with oligohydramnios SARIKA of 4.8 cm and 4/8 BPP. gdm controlled with metformin. Maternal Data Information BRUNO Calculator Estimated Delivery Date Method Current WG Current Estimate 05/14/24 Ultrasound #1 36w 6d Other Estimates 05/05/24 LMP (Certain) 38w 1d PFSH PFS Medical History Infertility Abnormal glucose affecting Home Medications ?Medication ?Instructions ?Recorded ?Last Taken ?Type multivitamin no.47-iron fum 27 cap PO 09/22/23 Unknown History mg-folate no.1 1 mg-dha 300 mg capsule (PNV-DHA) blood sugar diagnostic (Blood #50 ea 03/01/24 Unknown Rx Glucose Test strips) blood-glucose meter #1 ea 03/01/24 Unknown Rx lancets (Accu-Chek Softclix #100 ea 03/01/24 Unknown Rx Lancets) metformin 1,000 mg tablet 1,500 mg (1.5 x 1,000 mg) PO HS 30 04/19/24 Unknown Rx days #45 tabs Allergy/AdvReac Type Severity Reaction Status Date / Time No Known Allergies Allergy Verified 04/22/24 16:39 Family History Father Heart disease Sister demise 18 weeks Grandfather Cancer, Onset Age: 38 Paternal Surgical History [place] teeth extracted Status post vaginal delivery History of cholecystectomy Social History adopted: No household members: spouse and children housing: house number of children: 1 current occupational status: employed 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 - [employer] current occupational exposures/hazards: No pets and animals: No history of recent travel: No sexually active: Yes Smoking Status: Never smoker second hand exposure: No alcohol intake: current alcohol intake frequency: holidays/special occasions only details: not while substance use type: does not use well-balanced diet: daily or most days caffeine: Yes Type: other Number of servings: 1 eating out: 1-3 times/week during the past year weight has: decreased > 10 lbs what type of physical activity do you participate in: walking and weight training frequency: 3-4 times per week duration: 30-45 minutes/day kj/yazdanism: Restoration seatbelt use: always do you feel safe at home: Yes 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 Date Name GA/Weeks Outcome Route Bth Weight Infant Gen Labor Lgth Anesthesia Del Locatn Provider FOB Unknown 09/2020 Miscarriage 12/16/21 [place] 36 live - 4lbs 15oz Female epidural [facility] Lisa Dumont Delivery Date: 12/16/21 Last Updated by: Leydi Joel See problem list for complications and pre-e. Visit Details Expected Delivery Route/Plan Labor Preferences- CB/BF classes: no labor support person: Edmundo labor intervention preferences: [] pain management options preferred: epidural if requested cut cord/dad catch: cord : yes PP control planned: discussed discussed possible routes of delivery and associated risks: [] special requests: [] Plans Covid status: [] Flu vaccine: [] Tdap vaccine: declines Rhogam: NA LARC form signed: yes Problem list reviewed and updated with the most current plan of care details and appropriate orders placed. Relevant counseling for the gestational age provided. Continue routine care and follow up unless otherwise noted in visit notes/problem list details OB Flowsheet Initial Weight: Not Recorded Date <del>?</del> EGA Weight BP Urine Prot <del>?</del> Glucose FHR FuHt Pres Dilation <del>?</del> Effaced St Visit Note 09/25/23 <del>?</del> 6w 6d 255 lb 137/91 <del>?</del> 114 <del>?</del> kw- crl not cons with dates. measuring 6.6 weeks. RTO in 2 weeks for rescan. declines NIPT kw- crl not cons with dates. measuring 6.6 weeks. RTO in 2 weeks for rescan. declines NIPT. pre e and A1C labs ordered with NOB labs 10/10/23 <del>?</del> 9w 0d 251 lb 4 oz 131/85 Negative <del>?</del> Negative 168 <del>?</del> KW- repeat scan CRL cons with 9.0 weeks. doing well. 11/08/23 <del>?</del> 13w 1d 250 lb 147/84 121/84 <del>?</del> 160 <del>?</del> JV- no cramping or spotting. anatomy scan ordered. 12/08/23 <del>?</del> 17w 3d 252 lb 2 oz 123/84 Negative <del>?</del> Negative 154 <del>?</del> JV- feeling movement. has anatomy scan on 12/25. no other complaint. 01/02/24 <del>?</del> 21w 0d 256 lb 136/87 <del>?</del> 140 <del>?</del> SM- no vb lof good fm no regular ctx 01/31/24 <del>?</del> 25w 1d 258 lb 124/82 Negative <del>?</del> Negative 130 26 <del>?</del> -No VB, LOF. Good FM. Discussed with SM and will cont next growth w/MFM but can do BPPs with [facility] wkly at 34 wk 02/21/24 <del>?</del> 28w 1d 261 lb 117/75 Negative <del>?</del> Negative 147 29 <del>?</del> MH-No VB, LOF. Good Fm. Needs 3 hr GTT. Will start growth US with [facility] at 32 and 36 wk and also do her weekly BPPs at 34 wk with [facility] 03/04/24 <del>?</del> 29w 6d 264 lb 117/81 Negative <del>?</del> Negative 140 31 <del>?</del> KW- no vb/lof/ctx. good fm. GDM-discussed POC. picked up supplies today and will bring readings to next appt. 03/18/24 <del>?</del> 31w 6d 257 lb 2 oz 119/80 Negative <del>?</del> Negative 135 32 <del>?</del> JV- fasting glucose levels are getting high. She has some opportunity to cut out carbs though and wants to try this for a week. Adding a protein at bedtime may also help. She will update us via the portal and we can decide if going to start metformin at bedtime. 04/04/24 <del>?</del> 34w 2d 256 lb 108/76 Negative <del>?</del> Negative 140 34 <del>?</del> SM- no vb lof good fm no regular ctx BS getting better controlled with metformin bpp and sarika normal yeterday 04/11/24 <del>?</del> 35w 2d 256 lb 8 oz 114/76 Negative <del>?</del> Negative 130 36 <del>?</del> JV- fasting levels in the high 90's. had a few up to 108. if still high next visit she knows we may need to switch to NPH 04/19/24 <del>?</del> 36w 3d 254 lb 2 oz 128/85 Negative <del>?</del> Negative 140 37 Cephalic <del>?</del> SM- elevated fastings, will increase to 1500 at night, gbs today NST FHR Rate Baby A Baseline: 130 Variability:: Moderate Accelerations:: 15 x 15 Decelerations:: None NST Reactive:: Yes FHR Category:: Category I Uterine Activity:: irregular ROS Constitutional Constitutional: Reports systems reviewed and no addt'l complaints, except as documented Eyes Eyes: Denies change in vision ENT HEENT: Reports systems reviewed and no addt'l complaints, except as documented; Denies headache(s) Cardiovascular Cardiovascular: Reports systems reviewed and no addt'l complaints, except as documented; Denies chest pain or dyspnea Respiratory/Chest Respiratory/Chest: Reports systems reviewed and no addt'l complaints, except as documented Gastrointestinal Gastrointestinal: Reports systems reviewed and no addt'l complaints, except as documented; Denies abdominal pain Genitourinary Genitourinary: Reports systems reviewed and no addt'l complaints, except as documented, contractions Details: present (irregular) and movement Details: present; Denies dysuria or genital lesions Musculoskeletal Musculoskeletal: Reports systems reviewed and no addt'l complaints, except as documented Neurologic Neurologic: Reports systems reviewed and no addt'l complaints, except as documented Endocrine Endocrinology: Reports systems reviewed and no addt'l complaints, except as documented Vital Signs Vital Signs Vital Signs: 04/22/24 16:21 04/22/24 16:21 04/22/24 16:33 Pulse Rate 88 91 Blood Pressure BP Systolic BP Diastolic Pulse Ox 99 04/22/24 16:33 04/22/24 16:38 09/16/24 16:38 Pulse Rate 90 Blood Pressure BP Systolic BP Diastolic Pulse Ox 99 99 04/22/24 16:41 04/22/24 16:41 04/22/24 16:43 Pulse Rate 87 Blood Pressure 142/91 H 142/92 H BP Systolic 142 142 BP Diastolic 91 92 Pulse Ox 04/22/24 16:43 Pulse Rate 82 Blood Pressure BP Systolic BP Diastolic Pulse Ox Weight Weight: 260 lb 12.909 oz Body Mass Index (BMI) 40.8 Physical Exam Const alert, oriented x3, no apparent distress and healthy appearing HEENT normocephalic and moist oral mucous membranes Head and Scalp: atraumatic Neck full ROM, no lymphadenopathy, supple and thyroid normal General: trachea midline Lymph Lymphatic: no lymphadenopathy noted Chest inspection of chest normal Resp normal respiratory effort Cardio regular rate GI normal to inspection, nondistended, normoactive bowel sounds, soft to palpation and non-tender Inspection: gravid external exam normal Manual OB Exam: estimated gestational size appropriate, presentation cephalic, dilated, effaced and station Extremity normal to inspection General Extremity: Negative for edema Skin no rashes or lesions noted Neuro no focal motor deficits and deep tendon reflexes 2+ bilaterally Motor Exam: strength 5/5 throughout and clonus absent Psych mental status grossly normal Labs Labs Labs: Blood Type B POSITIVE Antibody Screen NEGATIVE Hct 36.7 % (37-47) L Hgb 12.3 g/dL (12.0-15.0) Obstetrics Ultrasound Syphilis Total Ab Non-reactive VZV IgG Antibody < 135 index (Immune >165) L Rubella IgG Antibody Reactive (Nonreactive) Hep Bs Antigen Non-Reactive (Nonreactive) Hepatitis C Antibody Non-Reactive (Nonreactive) Chlamydia DNA ([place]) Negative (Negative) N.gonorrhoeae DNA ([place]) Negative (Negative) HIV 1&2 Antibody Non-Reactive (Nonreactive) Glucose 1 Hr 50 gm 161 mg/dL (70-140) H Gest Glucose Tolerance MG/DL Group B Strep DNA POSITIVE (Negative) H Assessment & Plan (1) Gestational diabetes: COMMENT: starting metformin 04/01/24- start weekly bpps at 32 weeks (2) Abnormal glucose complicating childbirth: COMMENT: needs 3 hr GTT (3) Dilation of renal pelvis of fetus: COMMENT: mild right. Growth Q4w MFM until 28 wk then will do 32 and 36 w/[facility]. 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 (5) Circumvallate placenta: QUALIFIERS: Trimester: third trimester Qualified Code(s): O43.113 - Circumvallate placenta, third trimester COMMENT: growth US q 4 weeks. (6) Obesity affecting : QUALIFIERS: Trimester: third trimester Qualified Code(s): O99.213 - Obesity complicating , third trimester COMMENT: A1C with NOB labs-5.4. BMI 45. Per MFM:wkly BPP at 34 wk:OK at [facility] (7) Varicella vaccination status unknown: COMMENT: not immune (8) History of miscarriage, currently : COMMENT: 2020 (9) Hx of pre-eclampsia in prior , currently : COMMENT: baseline labs with NOB labs (10) Supervision of high-risk : QUALIFIERS: Trimester: third trimester Qualified Code(s): O09.93 - Supervision of high risk , unspecified, third trimester COMMENT: PRR, , BRUNO 05/05/24, boy PC Raylin Edmundo (11) : QUALIFIERS: Weeks of gestation: 36 weeks Qualified Code(s): Z3A.36 - 36 weeks gestation of COMMENT: GBS NEG declined ntd genetic & carrier testing. anatomy reveiwed. (12) Thyromegaly: COMMENT: workup normal (13) Oligohydramnios in third trimester: PLAN: Plan Patient presents IOL, plan management for with cytotec. Pain management: plans epidural. GBS negative. Management of any complications: oligo, elevated bps, will check labs I have reviewed the [facility] and made any clinically relevant updates.
[2024-04-22 17:43] LABS: Absolute Lymphocyte Count 1.85 X10^3/uL (0.83-4.51); Absolute Neutrophil Count 4.4 X10^3/uL (2.0-7.7); Basophil# 0.02 X10^3/uL; Basophil% 0.3 % (0-1); Eosinophil# 0.07 X10^3/uL; Hematocrit 33.5 % (37-47); Hemoglobin 10.7 g/dL (12.0-15.0); Lymphocyte # 1.85 X10^3/ul (0.83-4.51); Lymphocyte % 27.1 % (19-41); Mean Corp Hgb Conc 31.9 g/dL (32-36); Mean Corpuscular Hgb 27.2 pg (27.0-32.0); Mean Corpuscular Volume 85.2 fL (81-99); Mean Platelet Vol. 12.8 fl (6.2-12.0); Monocyte# 0.51 X10^3/uL; Monocyte% 7.5 % (0-10); NRBC Flagged by Analyzer 0 % (0-5); Neutrophil # 4.35 X10^3/uL (2.7-7.7); Neutrophil % 63.8 % (47-70); Platelet Count 163 K/mm3 (150-450); RBC Distribution Width CV 13.6 % (11.6-14.6); RBC Distribution Width SD 42.5 fl (35.1-43.9); Red Blood Count 3.93 M/mm3 (4.2-5.4); White Blood Count 6.8 K/mm3 (4.4-11.0)
[2024-04-22 17:56] LABS: Protein, Urine (Random) < 6.0 mg/dL (<11.9)
[2024-04-22 17:58] LABS: Bedside Glucose 81 mg/dL (74-106)
[2024-04-22 18:03] LABS: AST(SGOT) 22 U/L (15-37); Alanine Aminotransfer ALT/SGPT 33 U/L (13-56); EST Glomerular Filtration Rate 153 mL/min (>60); Est Glom Filt Rate - Afr Amer 185 mL/min (>60); Estimated Creatinine Clearance 218.89 ml/min; Uric Acid 4.6 mg/dL (2.6-6.0)
[2024-04-22] MEDS: miSOPROStol 25 MCG TABLET PO (18:17)
[2024-04-22 18:23] LABS: Syphilis Antibodies Non-reactive
[2024-04-22] MEDS: Lactated Ringers 1,000 ML 50 ML IV (19:00)
[2024-04-22 21:24] LABS: Bedside Glucose 83 mg/dL (74-106)
[2024-04-22] MEDS: LACTATED RINGERS 500 ML 999 ML IV (22:41)
[2024-04-23] VITALS (66 sets, daily range): BP systolic 96–137; BP diastolic 48–92; PULSE 60–96; RESP 14–18; TEMP 36.4–37.3; O2SAT 94–100
[2024-04-23] MEDS: Oxytocin 15 Units/NS 250ml 15 UNITS/250 ML IV.SOLN 2 UNITS IV (00:08)
--- NOTE | 2024-04-23 00:26 | PN_ITS ---
Progress Note Coping well with contractions current tracing: FHT: 130 Moderate variability reactive no decelerations category I tracing [place]: 2-4 Contractions Membranes: intact SVE:360/-2 In house to place marcus bulb. after cervical exam determined not appropriate at this time due to dilation. A/P: Continue with position changes Start/Titrate pitocin per protocol Epidural per anesthesia GBS neg Anticipate Dr hCeney aware of above assessment and agrees with plan of care Assessment & Plan Assessment/Plan (1) Oligohydramnios in third trimester: (2) Gestational diabetes: (3) Abnormal glucose complicating childbirth: (4) Dilation of renal pelvis of fetus: (5) anomaly: (6) Circumvallate placenta: QUALIFIERS: Trimester: third trimester Qualified Code(s): O43.113 - Circumvallate placenta, third trimester (7) Obesity affecting : QUALIFIERS: Trimester: third trimester Qualified Code(s): O99.213 - Obesity complicating , third trimester (8) Varicella vaccination status unknown: (9) History of miscarriage, currently : (10) Hx of pre-eclampsia in prior , currently : (11) Supervision of high-risk : QUALIFIERS: Trimester: third trimester Qualified Code(s): O09.93 - Supervision of high risk , unspecified, third trimester (12) : QUALIFIERS: Weeks of gestation: 36 weeks Qualified Code(s): Z3A.36 - 36 weeks gestation of (13) Thyromegaly: Multi Select Codes Urinary/Genital Urinary/Genital CPT Codes: No Charge
[2024-04-23 03:17] LABS: Bedside Glucose 79 mg/dL (74-106)
[2024-04-23 08:12] LABS: Bedside Glucose 90 mg/dL (74-106)
[2024-04-23] MEDS: Lactated Ringers 1,000 ML 999 ML IV (08:27)
[2024-04-23] MEDS: fentaNYL-bupivacaine (epidural) 100 ML BAG EPIDURAL ×2 (09:15→13:25)
[2024-04-23] MEDS: Lactated Ringers 1,000 ML 200 ML IV ×2 (10:15→15:12)
--- NOTE | 2024-04-23 10:43 | PCM.PN.BLA ---
Progress Note pt has epidural but not completely comfortable yet current tracing: FHT: Moderate variability reactive no decelerations category I tracing [place]: q2-4 min Contractions cx 4.5/80/-3, membranes ruptured with clear fluid. patient did feel the exam and was not comfortable. A/P: oligohydramnios- continue pitocin nurse to call anesthesia for epidural assistance.
[2024-04-23 11:50] LABS: Bedside Glucose 86 mg/dL (74-106)
[2024-04-23 15:42] LABS: Bedside Glucose 76 mg/dL (74-106)
[2024-04-23 15:42] LABS: Bedside Glucose 65 mg/dL (74-106)
[2024-04-23] MEDS: Oxytocin 15 Units/NS 250ml 15 UNITS/250 ML IV.SOLN 83 UNITS IV (17:41)
--- NOTE | 2024-04-23 18:03 | EX.PCM.OBRPT ---
Assessment & Plan (1) Oligohydramnios in third trimester: (2) Gestational diabetes: COMMENT: starting metformin 04/01/24- start weekly bpps at 32 weeks (3) Abnormal glucose complicating childbirth: COMMENT: needs 3 hr GTT (4) Dilation of renal pelvis of fetus: COMMENT: mild right. Growth Q4w MFM until 28 wk then will do 32 and 36 w/[facility]. 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 (6) Circumvallate placenta: QUALIFIERS: Trimester: third trimester Qualified Code(s): O43.113 - Circumvallate placenta, third trimester COMMENT: growth US q 4 weeks. (7) Obesity affecting : QUALIFIERS: Trimester: third trimester Qualified Code(s): O99.213 - Obesity complicating , third trimester COMMENT: A1C with NOB labs-5.4. BMI 45. Per MFM:wkly BPP at 34 wk:OK at [facility] (8) Varicella vaccination status unknown: COMMENT: not immune (9) History of miscarriage, currently : COMMENT: 2020 (10) Hx of pre-eclampsia in prior , currently : COMMENT: baseline labs with NOB labs (11) Supervision of high-risk : QUALIFIERS: Trimester: third trimester Qualified Code(s): O09.93 - Supervision of high risk , unspecified, third trimester COMMENT: PRR, , BRUNO 05/05/24, boy PC Raybilly Edmundo (12) : QUALIFIERS: Weeks of gestation: 36 weeks Qualified Code(s): Z3A.36 - 36 weeks gestation of COMMENT: GBS NEG declined ntd genetic & carrier testing. anatomy reveiwed. (13) Thyromegaly: COMMENT: workup normal Maternal Data Information BRUNO Calculator Estimated Delivery Date Method Current WG Current Estimate 05/14/24 Ultrasound #1 37w 0d Other Estimates 05/05/24 LMP (Certain) 38w 2d Final BRUNO: 05/14/24 Final BRUNO Source: US <20 weeks [place] Doctor Who Attended Delivery: Ottoniel Leigh Vaginal Delivery Maternal Presentation Maternal Presentation: Medically Indicated Induction Type of Induction: Pitocin, Amniotomy and Cytotec Operative Information Date of Procedure: 04/23/24 Pre-Operative Diagnosis: @ 37 weeks, oligohydramnios, BPP 4/8 Post-Operative Diagnosis: @ 37 weeks, oligohydramnios, BPP 4/8 Surgery / Procedure Performed: Spontaneous Vaginal Delivery Type of Anesthesia: Epidural Drain: Barnett to straight drain Estimated Blood Loss: 100cc Time of Delivery: 17:37 Findings Description of Procedure: Patient began pushing and delivered the head in the CARMEN presentation. The head was delivered atraumatically. A nuchal cord X1 was delivered. The anterior and posterior shoulders delivered without complication followed by the rest of the and the infant was placed on the maternal abdomen. Delayed cord clamping was employed for approximately 60 seconds. Cord was clamped and cut and gentle traction was applied to the cord and the placenta delivered spontaneously immediately following it was noted to be intact with three-vessel cord. The perineum and vagina were inspected and noted to have a very small 1st degree tear repaired with a 3-0 vicryl. EBL was 100 cc. Patient and infant tolerated delivery well. Presentation: Vertex Amniotic Membrane Rupture Type: Spontaneous Amniotic Fluid Description: Clear Placental Delivery Description: Spontaneous Placenta Disposition: [facility] Cord Vessel Description: 3 Vessels Cord Entanglement: Around neck x 1, loose Infant A Gender: Male (1 minute): 8 (5 minute): 9 Delayed Cord Clamping: Yes Post Vaginal Delivery Medications Given After Delivery: IV Pitocin Episiotomy Description: None Laceration: 1st degree Complication Complications: None Multi Select Codes Urinary/Genital Urinary/Genital CPT Codes: 89308 Vaginal Delivery [facility]
--- NOTE | 2024-04-23 18:08 | PCM.DC ---
Discharge Instructions Diet Discharge Diet: No restrictions Activity Discharge Activity: Return to Normal Activity, May Not Drive (while taking narcotic pain medications.) and May Shower May resume sexual activity in: 4-6 weeks Dressing / Incision Call your doctor if your incision/area has: Continuous Slow Oozing, Sudden Increased Bleeding, Increased Pain/ Swelling, Increased Redness and Foul Smelling Discharge Follow Up Care Please Follow Up With: Lisa Dumont, When: Call [phone] to make an appointment with your doctor in 6 weeks. If you had elevated blood pressure or 4th degree laceration, you will need to be seen in 2 weeks. Test Results: Test results from this visit will be discussed in further detail at your follow-up appointment, if applicable. Discharge Plan Admission Admit Date/Time: 04/22/24 16:22 Attending Provider: Lisa Dumont Primary Care Provider: Joanne Leal NP Discharge Orders/Prescriptions Prescriptions: No Action PNV-DHA 27 mg iron-1 mg -300 mg capsule 1 cap PO DAILY metformin 1,000 mg tablet 1,500 mg PO HS 30 Days Qty: 45 6RF (DME) lancets [Accu-Chek Softclix Lancets] Misc See Rx Instructions .ROUTE .MEDSUPPLY Qty: 100 6RF Rx Instructions: Check blood sugars fasting and 2 hours after breakfast, lunch, and dinner. (DME) blood-glucose meter Misc See Rx Instructions .ROUTE .MEDSUPPLY Qty: 1 0RF Rx Instructions: As directed (DME) Blood Glucose Test Strip See Rx Instructions .ROUTE .MEDSUPPLY Qty: 50 6RF Rx Instructions: Check blood sugars Fasting and 2 hours after breakfast, lunch, and dinner. Referrals / Follow Up: Joanne Leal NP, ICE CREAM VENDOR-C [Primary Care Provider] -
[2024-04-23 19:06] LABS: Bedside Glucose 76 mg/dL (74-106)
[2024-04-24 00:49] VITALS: BP 100/80; PULSE 72; RESP 16; TEMP 36.1; O2SAT 97
[2024-04-24 04:40] VITALS: BP 128/89; PULSE 64; RESP 16; TEMP 36.3
[2024-04-24 05:02] LABS: Bedside Glucose 107 mg/dL (74-106)
[2024-04-24] MEDS: Ibuprofen 600 MG Tablet PO ×3 (06:00→20:41)
--- NOTE | 2024-04-24 07:50 | PN.OBGYN_ITS ---
Subjective Subjective Patient doing well without complaints. Tolerating PO. Ambulating and voiding without difficulty. Baby in SCN, respiratory issue but doing well, no O2. She is pumping. Denies chest pain, shortness of breath, calf pain/swelling, fevers, chills, lightheadedness. Objective Data Objective Data Vital Signs: Vital Signs Temp Pulse Resp BP Pulse Ox O2 Del Method 97.4 F L 64 16 128/89 H 97 Room Air 04/24/24 04:40 04/24/24 04:40 04/24/24 04:40 04/24/24 04:40 04/24/24 00:49 04/24/24 04:40 Oxygen Delivery Method Room Air Weight: 260 lb 12.909 oz Body Mass Index (BMI) 40.8 Intake & Output: Intake and Output for Last 24 Hours 04/22/24 04/23/24 04/24/24 23:59 23:59 23:59 Intake Total 714.17 / 714.17 3433.83 / 3433.83 Output Total 1250 / 1250 2150 / 2150 Balance -535.83 / -535.83 1283.83 / 1283.83 Lab / Micro Data 04/22/24 17:20 04/22/24 17:20 Labs: Laboratory Results - last 24 hr 04/23/24 07:24: POC Glucose 90 04/23/24 11:29: POC Glucose 86 04/23/24 15:06: POC Glucose 65 L 04/23/24 15:23: POC Glucose 76 04/23/24 18:47: POC Glucose 76 04/24/24 04:43: POC Glucose 107 H Physical Exam Const alert and oriented x3 HEENT normocephalic Eyes PERRL Neck full ROM Resp normal respiratory effort GI soft to palpation GI Narrative: FF below U Assessment & Plan (1) Spontaneous vaginal delivery: COMMENT: 04/23/24 IOL Patrick VANCE 37 wk oligo (2) Gestational diabetes: QUALIFIERS: Gestational diabetes mellitus control: oral hypoglycemic-controlled Trimester: unspecified trimester Qualified Code(s): O 24.415 - Gestational diabetes mellitus in , controlled by oral hypoglycemic drugs COMMENT: starting metformin 04/01/24- start weekly bpps at 32 weeks PLAN: Plan s/p PPD # 1 1. routine post delivery care 2. breast feeding- support given/pumping now 3. rh positive 4. rubella immune 5. Glucose stable
[2024-04-24 08:00] VITALS: BP 121/83; PULSE 67; RESP 16; TEMP 37
[2024-04-24] MEDS: Acetaminophen 500 MG Tablet 1000 MG PO ×2 (08:09→17:36)
[2024-04-24 12:07] VITALS: BP 92/71; PULSE 70; RESP 16; TEMP 36.2
[2024-04-24 17:50] VITALS: BP 122/93; PULSE 77; RESP 16; TEMP 36.3
[2024-04-24 21:00] VITALS: BP 120/64; PULSE 62; RESP 16; TEMP 36.7; O2SAT 100
[2024-04-25] MEDS: Acetaminophen 500 MG Tablet 1000 MG PO (02:22)
[2024-04-25 02:25] VITALS: BP 112/75; PULSE 62; RESP 18; TEMP 36.4; O2SAT 99
--- NOTE | 2024-04-25 07:58 | PCM.DC.SUM ---
Providers Date of Admission: 04/22/24 Primary Care Physician: TRISHA SanonC Reason For Visit: VAGINAL Diagnosis Discharge Diagnosis (1) Spontaneous vaginal delivery: Status: Acute Code(s): O80 - Encounter for full-term uncomplicated delivery (2) Gestational diabetes: Status: Acute Code(s): O24.419 - Gestational diabetes mellitus in , unspecified control Qualifiers: Gestational diabetes mellitus control: oral hypoglycemic-controlled Trimester: unspecified trimester Qualified Code(s): O24.415 - Gestational diabetes mellitus in , controlled by oral hypoglycemic drugs Medications at Discharge Home Medications multivitamin no.47-iron fum 27 mg-folate no.1 1 mg-dha 300 mg capsule (PNV-DHA) 1 cap PO DAILY 09/22/23 Hospital Course Operations None Summary of Care Provided Minutes Spent on Discharge: 15 Hospital Course: The patient was admitted to L&D on 04/23/24 for Induction of labor due to oligohydramnios and BPP of 4/8. She progressed to complete on the evening of 04/24 and delivered a viable male infant. On day #0 through 2 the baby was observed in the special care nursery and the patient recovered normally from her delivery. On day #2 The patient was discharged to home in stable condition. Physical Exam HEENT normocephalic Resp normal respiratory effort and normal air movement GI soft to palpation, non-tender and non-distended no CVA tenderness Extremity normal to inspection General Extremity: edema bilateral (trace ) Weight / BMI Weight Weight: 260 lb 12.909 oz Body Mass Index (BMI) 40.8 ABG / Lab / Microbiology Data 04/22/24 17:20 04/22/24 17:20 D/C Instructions Discharge Diet: No restrictions May resume sexual activity in: 4-6 weeks Weight Bearing Status: Full weight bearing Call your doctor if your incision/area has: Continuous Slow Oozing, Sudden Increased Bleeding, Increased Pain/ Swelling, Increased Redness and Foul Smelling Discharge Call your doctor if you observe: Fever of 101 or Higher and Using more than 1 pad per hour Please Follow Up With: Lisa Dumont, DO When: Call [phone] to make an appointment with your doctor in 6 weeks. If you had elevated blood pressure or 4th degree laceration, you will need to be seen in 2 weeks. Meaningful Use Info Meaningful Use Meaningful Use Diagnoses (Choose all that apply): None applicable Ischemic Stroke Statin Dosing Therapy Reference: STATIN DOSE THERAPY REFERENCE: * Patients > 75 years receive moderate or high dose statin therapy. * Patients 75 years or YOUNGER should receive HIGH intensity statin dose unless contraindicated. You will be required to document reason for non-treatment if statin daily dose does not meet guidelines. HIGH DOSE STATIN THERAPY DAILY Atorvastatin > than or = to 40 mg Rosuvastatin > than or = to 20 mg Amlodipine + Atorvastatin > than or = to 2.5/40 mg Ezetimibe + Simvastatin 10/80 mg Simvastatin 80mg Discharge Plan Admission Admit Date/Time: 04/22/24 16:22 Primary Reason for Your Visit: vaginal delivery Attending Provider: Lisa Dumont Primary Care Provider: Joanne Leal NP Discharge Orders/Prescriptions Prescriptions: Continued PNV-DHA 27 mg iron-1 mg -300 mg capsule 1 cap PO DAILY Discontinued metformin 1,000 mg tablet 1,500 mg PO HS 30 Days Qty: 45 6RF (DME) lancets [Accu-Chek Softclix Lancets] Misc See Rx Instructions .ROUTE .MEDSUPPLY Qty: 100 6RF Rx Instructions: Check blood sugars fasting and 2 hours after breakfast, lunch, and dinner. (DME) blood-glucose meter Misc See Rx Instructions .ROUTE .MEDSUPPLY Qty: 1 0RF Rx Instructions: As directed (DME) Blood Glucose Test Strip See Rx Instructions .ROUTE .MEDSUPPLY Qty: 50 6RF Rx Instructions: Check blood sugars Fasting and 2 hours after breakfast, lunch, and dinner. Referrals / Follow Up: Joanne Leal NP, DIGITAL COMPUTER OPERATOR-C [Primary Care Provider] - Disposition Disposition (needs filled in before D/C Order can be placed): Home, Self Care
[2024-04-25 09:15] VITALS: BP 139/73; PULSE 62; RESP 16; TEMP 36.3; O2SAT 99
[2024-04-25] MEDS: Ibuprofen 600 MG Tablet PO (09:29)
[2024-04-25 13:55] VITALS: BP 126/73; PULSE 62; RESP 18; TEMP 36.4; O2SAT 100
--- NOTE | 2024-04-25 15:17 | CASEMGMT ---
Labor and Delivery Soc[facility] Services Patient had baby who required admission to Special Care Nursery due to respiratory distress. Sw met with patient and her spouse to provide support and assess for any needs or concerns they may have. Patient is doing well, she has natural supports in place and has all necessary baby supplies. Patient and baby are both ready for discharge today. Patieny was observed to be in happy spirits and eager for discharge. No additional needs or concerns addressed. Jaz Lynn, PATIENT ACCOUNTS COORDINATOR, BLISTER PACKING MACHINE TENDER
--- NOTE | 2024-04-29 08:19 | NURSING ---
Friday 04/27, here for bili and weight check for .Patient states she is doing very well. Patient denies any pain, headaches, visual changes, or baby blues. States her bleeding is minimal. States she is doing well with pumping and feeding, denies any questions or concerns at this time.
== END 2024-04-25 16:00 | disposition home or self-care (01) | DRG 807 ==
LOC: WPOUT 16:30 → WP 16:30
PROVIDERS: Advanced Practice Midwife; Obstetrics & Gynecology; Admitting Provider Obstetrics & Gynecology; PCP Nurse Practitioner; Referring Provider Obstetrics & Gynecology; Visit Provider Obstetrics & Gynecology
DX: O41.03X0 Oligohydramnios, third trimester, not applicable or unspecified (principal); Z37.0 Single live birth; O24.425 Gestational diabetes mellitus in childbirth, controlled by oral hypoglycemic drugs; O99.214 Obesity complicating childbirth; O69.81X0 Labor and delivery complicated by cord around neck, without compression, not applicable or unspecified; O36.8930 Maternal care for other specified fetal problems, third trimester, not applicable or unspecified; O70.0 First degree perineal laceration during delivery; Z3A.37 37 weeks gestation of pregnancy; Z87.59 Personal history of other complications of pregnancy, childbirth and the puerperium
CPT/HCPCS: 59025; 59050; 76819; 82565; 82570; 82962; 84156; 84450; 84460; 84550; 85025; 86780; 86850; 86900; 86901; 99221; J7120; G0378